=== PATIENT | female | born 1955 | race Caucasian/White ===

== ENCOUNTER 2022-09-22 11:54 | Inpatient (IN) | payer MEDICARE ==
--- NOTE | 2022-09-22 12:44 | ED ---
Recheck HPI - General Chief Complaint: Recheck/Abnormal Lab/Rx Stated Complaint: Low hemoglobin Time Seen by Provider: 09/22/22 12:05 Source: patient, family, EMS, RN notes reviewed Mode of arrival: EMS Limitations: no limitations - History of Present Illness Initial Comments: This is a 67-year-old female who presents to the emergency department for low hemoglobin. States that she was contacted by one of her family members and they told that her hemoglobin level was low. She was subsequently instructed to come to the emergency department. Believes that she has had low hemoglobin in the past, but denies any history of blood transfusions. She does report an increase in weakness over the last couple of days. Also reports minor shortness of [place] th. She was placed on oxygen by EMS, however she states that she does not wear oxygen at home. Denies any chest pain. When her family arrived, they state that this is not related to her hemoglobin level, but her coags in relation to the warfarin. States that she started warfarin 1-2 weeks ago due to the diagnosis of lung cancer. The lung cancer has metastasized to the bone and is being treated at [facility]. The provider at [facility] called her family and told them that her INR was incredibly elevated and she needed to go to the hospital. Denies any fevers, chills, sore throat, cough, chest pain, palpitations, abdominal pain, nausea, vomiting, diarrhea, back pain, or headaches. Complaint: abnormal lab Returns Today for: Called Because of Abnormal Lab/Test - Related Data Home Medications Medication Instructions Recorded Confirmed Acetylcysteine [Mucomyst 20%] 800 mg PO DAILY 09/22/22 09/22/22 Chlorhexidine Gluconate [Peridex] 15 ml PO BID 09/22/22 09/22/22 Docusate Sodium [Dok] 100 mg PO BID 09/22/22 09/22/22 Fluticasone/Umeclidin/Vilanter 1 puff INHALATION RT-DAILY@1300 09/22/22 09/22/22 [Trelemanuel Ellipta 100-62.5-25] HYDROcodone/APAP 10-325MG [[place] 1 tab PO QID PRN 09/22/22 09/22/22 10-325] Ipratropium-Albuterol Nebulize 3 ml INHALATION RT-Q6H PRN 09/22/22 09/22/22 [Duoneb 0.5 mg-3 mg/3 ml Soln] LORazepam [Ativan] 0.5 mg PO BID 09/22/22 09/22/22 Ondansetron [Zofran] 4 mg PO Q4H PRN 09/22/22 09/22/22 Osimertinib Mesylate [Tagrisso] 80 mg PO DAILY 09/22/22 09/22/22 Warfarin [Coumadin] 5 mg PO HS 09/22/22 09/22/22 Allergies Allergy/AdvReac Type Severity Reaction Status Date / Time No Known Allergies Allergy Verified 09/22/22 13:55 Review of Systems ROS Statement: Those systems with pertinent positive or pertinent negative responses have been documented in the HPI. ROS Other: All systems not noted in ROS Statement are negative. Past Medical History Past Medical History: COPD General Exam Limitations: no limitations General appearance: alert, in no apparent distress Head exam: Present: atraumatic, normocephalic, normal inspection Respiratory exam: Present: normal lung sounds bilaterally. Absent: respiratory distress, wheezes, rales, rhonchi, stridor Cardiovascular Exam: Present: regular rate, normal rhythm, normal heart sounds. Absent: systolic murmur, diastolic murmur, rubs, gallop, clicks Neurological exam: Present: alert, oriented X3, CN II-XII intact Psychiatric exam: Present: normal affect, normal mood Skin exam: Present: warm, dry, intact, normal color. Absent: rash Course Vital Signs 09/22/22 09/22/22 09/22/22 11:59 18:32 18:50 Temperature 98 F 98.5 F 97.5 F L Pulse Rate 103 H 89 Pulse Rate [ 91 Pulse Oximetery ] Respiratory 19 18 20 Rate Blood Pressure 126/79 92/65 Blood Pressure 109/70 [Left Arm] O2 Sat by Pulse 90 L 97 90 L Oximetry Medical Decision Making - Medical Decision Making This is a 67-year-old female who presents to the emergency department for elevated INR levels. Lab work does reveal an elevated INR at a value greater than 10. Patient was given 5 mg of oral vitamin K. Patient is hemodynamically stable and is not exhibiting any bleeding. My interpretation of the chest x-ray reveals bilateral perihilar infiltrates. Oral Augmentin and azithromycin were administered and initially, as we had thought the patient was going to be discharged. However, when her family arrived and provided more of her history in relation to the lung cancer and immunocompromised state, she was subsequently started on the pneumonia protocol with azithromycin and ceftriaxone. Blood and sputum cultures obtained prior. Additionally, she has been in 10 out of 10 pain that is uncontrolled with her [place] at home. Her family is concerned about her ability to function and move around due to this pain, which has been attributed to the bone metastasis. Patient will be admitted to medicine for pneumonia and elevated INR levels with hematology/oncology and pulmonary consults. This case was discussed in detail with the attending ED physician. Presentation, findings, and treatment plan discussed in detail as well. Was pt. sent in by a medical professional or institution? @ -Arnulfo Akers Did you speak to anyone other than the patient for history? @ -Her brothers Did you review nursing and triage notes? @ -Disagree, patient is not here for low hemoglobin. Were old charts reviewed? @ -No, no records available Differential Diagnosis? @ -Differential Dyspnea: Coronary syndrome, arrhythmia, tamponade, asthma, COPD, pulmonary embolism, pneumonia, pneumothorax, pulmonary effusion, anaphylaxis, diabetic ketoacidosis, flailed chest, pulmonary contusion, diaphragmatic rupture, anemia, neuromuscular, this is not meant to be an all-inclusive list. What testing was considered but not performed? (CT, X-rays, U/S, labs)? Why? @ None What meds were considered but not given? Why? @ -None Did you discuss the management of the patient with other professionals? @ -Dr. Damon and Lydia Gallagher NP Did you reconcile home meds? @ -Yes Were there social determinants of health that impacted care today? How? (Homelessness, low income, unemployed, alcoholism, drug addiction, transportation, low edu. Level, literacy, decrease access to med. care, long-term, rehab)? @ -No Was there de-escalation of care discussed even if they declined? (Discuss DNR or withdrawal of care, Hospice)? @ -No What co-morbidities impacted this encounter? (DM, HTN, Smoking, COPD, CAD, Cancer, CVA, Hep., AIDS, mental health diagnosis, sleep apnea, morbid obesity)? @ -COPD and metastatic lung cancer. Drug Therapy requiring intensive monitoring for toxicity (Heparin, Nitro, Insulin, Cardizem)? @ -None Were any procedures done? @ -None Diagnosis/symptom? @ -Pneumonia Acute, or Chronic, or Acute on Chronic? @ -Acute Uncomplicated (without systemic symptoms) or Complicated (systemic symptoms)? @ -Complicated Side effects of treatment? @ -ALLERGIC reaction to antibiotics Poses a threat to life or bodily function? @ -Yes Diagnosis/symptom? @ -Elevated INR Acute, or Chronic, or Acute on Chronic? @ -Acute Uncomplicated (without systemic symptoms) or Complicated (systemic symptoms)? @ -Uncomplicated Side effects of treatment? @ -With holding warfarin, may increase the risk of blood clots. Poses a threat to life or bodily function? @ -Yes - Lab Data Result diagrams: 09/22/22 12:46 09/22/22 12:46 Lab Results 09/22/22 09/22/22 09/22/22 Range/Units 12:46 12:46 12:46 WBC 7.7 (3.8-10.6) k/uL RBC 3.39 L (3.80-5.40) m/uL Hgb 10.3 L (11.4-16.0) gm/dL Hct 30.4 L (34.0-46.0) % MCV 89.8 (80.0-100.0) fL MCH 30.3 (25.0-35.0) pg MCHC 33.7 (31.0-37.0) g/dL RDW 14.5 (11.5-15.5) % Plt Count 262 (150-450) k/uL MPV 8.6 Neutrophils % 85 % Lymphocytes % 5 % Monocytes % 6 % Eosinophils % 1 % Basophils % 0 % Neutrophils # 6.6 (1.3-7.7) k/uL Lymphocytes # 0.4 L (1.0-4.8) k/uL Monocytes # 0.5 (0-1.0) k/uL Eosinophils # 0.0 (0-0.7) k/uL Basophils # 0.0 (0-0.2) k/uL PT 115.9 H (9.0-12.0) sec INR >10.0 H* (<1.2) APTT 70.5 H (22.0-30.0) sec Sodium 133 L (137-145) mmol/L Potassium 4.0 (3.5-5.1) mmol/L Chloride 101 (98-107) mmol/L Carbon Dioxide 27 (22-30) mmol/L Anion Gap 5 mmol/L BUN 9 (7-17) mg/dL Creatinine 0.60 (0.52-1.04) mg/dL Est GFR (CKD-EPI)AfAm >90 (>60 ml/min/1.73 sqM) Est GFR (CKD-EPI)NonAf >90 (>60 ml/min/1.73 sqM) Glucose 96 (74-99) mg/dL Plasma Lactic Acid Danish (0.7-2.0) mmol/L Calcium 8.5 (8.4-10.2) mg/dL Phosphorus 3.7 (2.5-4.5) mg/dL Magnesium 2.0 (1.6-2.3) mg/dL Total Bilirubin 0.3 (0.2-1.3) mg/dL AST 23 (14-36) U/L ALT 10 (4-34) U/L Alkaline Phosphatase 182 H (38-126) U/L Troponin I (0.000-0.034) ng/mL Total Protein 6.1 L (6.3-8.2) g/dL Albumin 3.5 (3.5-5.0) g/dL Influenza Type A (PCR) (Not Detectd) Influenza Type B (PCR) (Not Detectd) RSV (PCR) (Not Detectd) SARS-CoV-2 (PCR) (Not Detectd) 09/22/22 09/22/22 09/22/22 Range/Units 12:46 12:46 12:46 WBC (3.8-10.6) k/uL RBC (3.80-5.40) m/uL Hgb (11.4-16.0) gm/dL Hct (34.0-46.0) % MCV (80.0-100.0) fL MCH (25.0-35.0) pg MCHC (31.0-37.0) g/dL RDW (11.5-15.5) % Plt Count (150-450) k/uL MPV Neutrophils % % Lymphocytes % % Monocytes % % Eosinophils % % Basophils % % Neutrophils # (1.3-7.7) k/uL Lymphocytes # (1.0-4.8) k/uL Monocytes # (0-1.0) k/uL Eosinophils # (0-0.7) k/uL Basophils # (0-0.2) k/uL PT (9.0-12.0) sec INR (<1.2) APTT (22.0-30.0) sec Sodium (137-145) mmol/L Potassium (3.5-5.1) mmol/L Chloride (98-107) mmol/L Carbon Dioxide (22-30) mmol/L Anion Gap mmol/L BUN (7-17) mg/dL Creatinine (0.52-1.04) mg/dL Est GFR (CKD-EPI)AfAm (>60 ml/min/1.73 sqM) Est GFR (CKD-EPI)NonAf (>60 ml/min/1.73 sqM) Glucose (74-99) mg/dL Plasma Lactic Acid Danish 0.6 L (0.7-2.0) mmol/L Calcium (8.4-10.2) mg/dL Phosphorus (2.5-4.5) mg/dL Magnesium (1.6-2.3) mg/dL Total Bilirubin (0.2-1.3) mg/dL AST (14-36) U/L ALT (4-34) U/L Alkaline Phosphatase (38-126) U/L Troponin I <0.012 (0.000-0.034) ng/mL Total Protein (6.3-8.2) g/dL Albumin (3.5-5.0) g/dL Influenza Type A (PCR) Not Detected (Not Detectd) Influenza Type B (PCR) Not Detected (Not Detectd) RSV (PCR) Not Detected (Not Detectd) SARS-CoV-2 (PCR) Not Detected (Not Detectd) - EKG Data EKG Comments: Sinus rhythm. Ventricular rate 84 bpm, IN interval 150 ms, QRS duration 113 ms, QTC 425 ms. EKG interpreted by myself and ED attending. - Radiology Data Radiology results: report reviewed, image reviewed Disposition Clinical Impression: Elevated INR (international normalized ratio) due to prior anticoagulant medication ingestion, Pneumonia, Immunocompromised state Disposition: ADMITTED IP TO THIS HOSP
[2022-09-22 13:01] LABS: Basophils % (A) 0 %; Eosinophils % (A) 1 %; HCT 30.4 % (34.0-46.0); HGB 10.3 gm/dL (11.4-16.0); Lymphocytes # (A) 0.4 k/uL (1.0-4.8); Lymphocytes % (A) 5 %; MCH 30.3 pg (25.0-35.0); MCHC 33.7 g/dL (31.0-37.0); MCV 89.8 fL (80.0-100.0); Mean Platelet Volume 8.6; Monocytes # (A) 0.5 k/uL (0-1.0); Monocytes % (A) 6 %; Neutrophils # (A) 6.6 k/uL (1.3-7.7); Neutrophils % (A) 85 %; Platelet Count 262 k/uL (150-450); RBC 3.39 m/uL (3.80-5.40); RDW 14.5 % (11.5-15.5); WBC 7.7 k/uL (3.8-10.6)
[2022-09-22 13:17] LABS: ALT 10 U/L (4-34); AST 23 U/L (14-36); African American GFR (CKD) >90 (>60 ml/min/1.73 sqM); Albumin 3.5 g/dL (3.5-5.0); Alkaline Phosphatase 182 U/L (38-126); Anion Gap 5 mmol/L; Blood Urea Nitrogen 9 mg/dL (7-17); Calcium 8.5 mg/dL (8.4-10.2); Carbon Dioxide 27 mmol/L (22-30); Chloride 101 mmol/L (98-107); Glucose 96 mg/dL (74-99); Non-African American GFR(CKD) >90 (>60 ml/min/1.73 sqM); Phosphorus 3.7 mg/dL (2.5-4.5); Sodium 133 mmol/L (137-145); Total Bilirubin 0.3 mg/dL (0.2-1.3); Total Protein 6.1 g/dL (6.3-8.2)
[2022-09-22 13:29] LABS: Prothrombin Time 115.9 sec (9.0-12.0)
[2022-09-22 13:47] LABS: INR >10.0 (<1.2); Partial Thromboplastin Time 70.5 sec (22.0-30.0)
--- NOTE | 2022-09-22 14:08 | XR ---
EXAMINATION TYPE: XR chest 2V DATE OF EXAM: 09/22/2022 COMPARISON: NONE HISTORY: Shortness of breath TECHNIQUE: Frontal and lateral views of the chest are obtained. FINDINGS: Scattered senescent parenchymal changes noted. Hyperinflation compatible with COPD. Perihilar infiltrates left greater than right. Correlate for pneumonia. Left suprahilar mass is not e xcluded. Heart size is stable. Mediastinal structures are stable and grossly unremarkable. No evidence for hilar prominence. Degenerative changes dorsal spine. IMPRESSION: 1. Perihilar infiltrates left greater than right. Correlate for pneumonia. Left suprahilar mass is no t excluded.
[2022-09-22] MEDS ORDERED: HYDROmorphone 0.5 MG/0.5 ML SYRINGE IVP STA (14:15)
[2022-09-22] MEDS ORDERED: PHYTONADIONE ORAL 5 MG/5 ML ORAL.SYRG PO STA (14:15)
[2022-09-22] MEDS ORDERED: AZITHROMYCIN 500 MG TAB PO STA (14:17)
[2022-09-22] MEDS ORDERED: AMOXIC-POT CLAV 875-125MG 1 EACH TAB PO STA (14:17)
[2022-09-22] MEDS ORDERED: PNEUMONIA PROTOCOL UTILIZED 1 EACH MISC PO PRN (15:17)
[2022-09-22] MEDS ORDERED: ONDANSETRON 4 MG/2 ML VIAL IVP STA (15:57)
[2022-09-22] MEDS ORDERED: ONDANSETRON 4 MG/2 ML VIAL IVP PRN (17:06)
[2022-09-22] MEDS ORDERED: ACETAMINOPHEN TAB 325 MG TAB PO PRN (17:06)
[2022-09-22] MEDS ORDERED: NALOXONE 0.4 MG/ML 1 ML VIAL IV PRN (17:06)
[2022-09-22] MEDS ORDERED: IPRATROPIUM-ALBUTEROL 3 ML NEB INHALATION PRN (17:09)
[2022-09-22] MEDS ORDERED: HYDROcodone/APAP 5-325MG 1 EACH TAB PO PRN (17:45)
[2022-09-22] MEDS: HYDROmorphone 0.5 MG/0.5 ML SYRINGE IVP SCH ×2 (18:35→21:30)
[2022-09-22] MEDS: PANTOPRAZOLE 40 MG/10 ML VIAL IV SCH (18:35)
[2022-09-22] MEDS: methylPREDNISolone SOD SUCCI 125 MG/2 ML VIAL IV SCH ×2 (18:36→23:27)
[2022-09-22] MEDS: DOCUSATE 100 MG CAP PO SCH (20:03)
[2022-09-22] MEDS: LORazepam 0.5 MG TAB PO SCH (20:03)
[2022-09-22] MEDS: CHLORHEXIDINE GLUCONATE 15 ML CUP MUCOUS MEM SCH (20:06)
[2022-09-22] MEDS: IPRATROPIUM-ALBUTEROL 3 ML NEB INHALATION SCH (20:45)
[2022-09-22] MEDS: SYMBICORT 80-4.5 MCG INHALER INHALATION SCH (21:04)
--- NOTE | 2022-09-23 00:57 | HP ---
HISTORY AND PHYSICAL CHIEF COMPLAINT: Abnormal labs. HISTORY OF PRESENT ILLNESS: This 67-year-old woman with a past medical history of multiple medical problems including COPD, malignancy, who was referred to [facility] with concerns of abnormal labs, low hemoglobin. The patient complains of diffuse aches and pains. No chest pain. No palpitations. No fever. Chest x-ray showed perihilar infiltrates. PAST MEDICAL HISTORY: COPD. The rest of the history and medications reviewed. HOME MEDICATIONS: Reviewed and include Coumadin, dose and rest of medications reviewed. ALLERGIES: None. FAMILY HISTORY: No history of heart disease or strokes in the family. SOCIAL HISTORY: No history of smoking or alcohol. REVIEW OF SYSTEMS: A 14-point review of systems is negative except as mentioned earlier. PHYSICAL EXAMINATION: VITAL SIGNS: Pulse is 103, blood pressure 110/70, respirations 19. HEENT: Conjunctivae normal. NECK: No JVD. CARDIOVASCULAR: S1, S2. RESPIRATION: Breath sounds diminished at the bases. Bilateral scattered rhonchi and crackles. ABDOMEN: Soft, nontender. LEGS: No edema. No swelling. NERVOUS SYSTEM: Nonfocal. SKIN: No ulcer, rash, bleeding. JOINTS: No active deforming arthropathy. LABORATORY DATA: Reviewed. ASSESSMENT: 1. Coumadin coagulopathy. 2. Possible pneumonia. metastaic lung cancer 3. Chronic obstructive pulmonary disease. 4. Anemia. 5. History of malignancy. 6. Multiple medical issues. RECOMMENDATIONS: In this 67-year-old woman, who presented with multiple medical issues, we will monitor the patient closely. Continue with current medications and symptomatic treatment. Otherwise at this time, I recommend to repeat labs in the morning, bronchodilators, symptomatic treatment. Prognosis is guarded because of multiple complex medical issues. Hematology/Oncology and Pulmonary has been consulted. Further recommendations to follow. The chest x-ray, which was reviewed personally showed perihilar infiltrates. MMODL / IJN: [id number] / [facility]ITALPedro
[2022-09-23] MEDS: HYDROmorphone 0.5 MG/0.5 ML SYRINGE IVP SCH ×5 (01:52→12:26)
[2022-09-23] MEDS: methylPREDNISolone SOD SUCCI 125 MG/2 ML VIAL IV SCH ×2 (05:40→12:26)
[2022-09-23 06:06] VITALS: RESP 18
[2022-09-23 06:36] LABS: Glucose,Whole Blood 150 mg/dL (70-110)
[2022-09-23 07:50] LABS: Basophils % (A) 0 %; Eosinophils % (A) 0 %; HCT 32.4 % (34.0-46.0); HGB 10.8 gm/dL (11.4-16.0); Lymphocytes # (A) 0.2 k/uL (1.0-4.8); Lymphocytes % (A) 8 %; MCH 30.3 pg (25.0-35.0); MCHC 33.3 g/dL (31.0-37.0); MCV 90.9 fL (80.0-100.0); Mean Platelet Volume 8.5; Monocytes # (A) 0.1 k/uL (0-1.0); Monocytes % (A) 2 %; Neutrophils # (A) 2.9 k/uL (1.3-7.7); Neutrophils % (A) 89 %; Platelet Count 283 k/uL (150-450); RBC 3.57 m/uL (3.80-5.40); RDW 13.9 % (11.5-15.5); WBC 3.2 k/uL (3.8-10.6)
[2022-09-23 07:55] LABS: Prothrombin Time 39.3 sec (9.0-12.0)
[2022-09-23 08:05] VITALS: BP 120/62; TEMP 97.8
[2022-09-23] MEDS: CHLORHEXIDINE GLUCONATE 15 ML CUP MUCOUS MEM SCH (08:07)
[2022-09-23] MEDS: PANTOPRAZOLE 40 MG/10 ML VIAL IV SCH (08:08)
[2022-09-23] MEDS: LORazepam 0.5 MG TAB PO SCH (08:08)
[2022-09-23] MEDS: DOCUSATE 100 MG CAP PO SCH (08:08)
[2022-09-23 08:20] LABS: African American GFR (CKD) >90 (>60 ml/min/1.73 sqM); Anion Gap 8 mmol/L; Blood Urea Nitrogen 10 mg/dL (7-17); Calcium 9.4 mg/dL (8.4-10.2); Carbon Dioxide 25 mmol/L (22-30); Chloride 100 mmol/L (98-107); Glucose 134 mg/dL (74-99); Non-African American GFR(CKD) >90 (>60 ml/min/1.73 sqM); Potassium 4.7 mmol/L (3.5-5.1); Sodium 133 mmol/L (137-145)
--- NOTE | 2022-09-23 08:28 | XR ---
EXAMINATION TYPE: XR chest 2V DATE OF EXAM: 09/23/2022 COMPARISON: None HISTORY: Shortness of breath TECHNIQUE: Frontal and lateral views of the chest are obtained. FINDINGS: Scattered senescent parenchymal changes noted. Hyperinflation compatible with COPD. Left perihilar and basilar infiltrates seen bilaterally suspicious for underlying pneumonia. Correlat e clinically and progress studies are advised. Heart size is stable. Mediastinal structures are stable and grossly unremarkable. No evidence for hilar prominence. Degenerative changes dorsal spine. IMPRESSION: 1. Left perihilar and basilar infiltrates seen bilaterally suspicious for underlying pneumonia. Corre late clinically and progress studies are advised.
[2022-09-23] MEDS ORDERED: NON FORMULARY DRUG (Osimertinib Mesylate [Tagrisso] 80 MG Tablet) PO SCH (09:00)
[2022-09-23] MEDS ORDERED: ACETYLCYSTEINE 800 MG/4 ML VIAL PO SCH (09:00)
[2022-09-23] MEDS ORDERED: AZITHROMYCIN 500 MG TAB PO SCH (09:00)
[2022-09-23] MEDS ORDERED: PHYTONADIONE ORAL 5 MG/5 ML ORAL.SYRG PO STA (09:28)
[2022-09-23] MEDS: SYMBICORT 80-4.5 MCG INHALER INHALATION SCH (10:04)
[2022-09-23] MEDS: IPRATROPIUM-ALBUTEROL 3 ML NEB INHALATION SCH ×2 (10:05→11:34)
--- NOTE | 2022-09-23 11:30 | P.CNPUL ---
History of Present Illness Consult date: 09/23/22 Requesting physician: Romario Larson Reason for consult: abnormal CXR/CT Chief complaint: Abnormal labs History of present illness: This is a very pleasant 67-year-old female patient with a known history of lung cancer since 2019. She follows at [facility] for treatment. She's been on immunotherapy since diagnosis. She is currently on Tagrisso. She had developed a DVT from a left subclavian port which has subsequently been removed. She had been trialed on Eliquis, Lovenox, Xarelto and had currently been on warfarin. She was informed yesterday that she needed to come to the emergency room because her lab work was off. She was found to have an INR of greater than 10. Due to the chronic abnormalities of her chest x-ray she was admitted for pneumonia and started on ceftriaxone and azithromycin. She has no pulmonary complaints. No cough or congestion. No shortness of breath. No fever chills. She states she was doing her day-to-day activities prior to her getting a call to come to the ER. Chest x-ray reveals the left perihilar and basilar infiltrates and a right lung. White count 3.2. Hemoglobin 10.8. Current INR 4.0. Sodium 133. Potassium 4.7. Bicarb 25. BUN 10. Creatinine 0.58. Influenza screen negative. RSV screen negative. COVID-19 screen negative. She is seen today in consultation on the regular medical floor. She is currently at the bedside. Awake and alert in no acute distress. No hemoptysis. No complaints otherwise. She is maintaining O2 saturations up to 99% on 2 L/m per nasal cannula. Afebrile. Hemodynamically stable. Review of Systems REVIEW OF SYSTEMS: CONSTITUTIONAL: Denies any recent significant weight loss or weight gain. EYES: Denies change in vision. EARS, NOSE, MOUTH, THROAT: Denies headaches, denies sore throat. CARDIOVASCULAR: Denies chest pain, palpitations or syncopal episodes. RESPIRATORY: Denies shortness of breath, cough, congestion or hemoptysis. GASTROINTESTINAL: Denies change in appetite, denies abdominal pain GENITOURINARY: Denies hematuria, denies infections. MUSKULOSKELETAL: Denies pain, denies swelling. INTEGUMENTARY: Denies rash, denies eczema. NEUROLOGICAL: Denies recent memory loss, no recent seizure activity. PSYCHIATRIC: Denies anxiety, denies depression. HEMATOLOGIC/LYMPHATIC: Denies anemia, denies enlarged lymph nodes. Past Medical History Past Medical History: COPD Additional Past Medical History / Comment(s): lung cancer with mets to the bone History of Any Multi-Drug Resistant Organisms: None Reported Additional Past Surgical History / Comment(s): tubal ligation, stent placed in lungs to assist breathing placed May of 2021 Past Anesthesia/Blood Transfusion Reactions: No Reported Reaction Past Psychological History: Anxiety, Depression Smoking Status: Former smoker Past Alcohol Use History: None Reported Past Drug Use History: Marijuana - Past Family History Father Family Medical History: Cancer Additional Family Medical History / Comment(s): lung Mother Family Medical History: COPD Additional Family Medical History / Comment(s): still alive Medications and Allergies Home Medications Medication Instructions Recorded Confirmed Type Acetylcysteine [Mucomyst 20%] 800 mg PO DAILY 09/22/22 09/22/22 History Chlorhexidine Gluconate [Peridex] 15 ml PO BID 09/22/22 09/22/22 History Docusate Sodium [Dok] 100 mg PO BID 09/22/22 09/22/22 History Fluticasone/Umeclidin/Vilanter 1 puff INHALATION RT-DAILY@1300 09/22/22 09/22/22 History [Trelegy Ellipta 100-62.5-25] HYDROcodone/APAP 10-325MG [[place] 1 tab PO QID PRN 09/22/22 09/22/22 History 10-325] LORazepam [Ativan] 0.5 mg PO BID 09/22/22 09/22/22 History Ondansetron [Zofran] 4 mg PO Q4H PRN 09/22/22 09/22/22 History Osimertinib Mesylate [Tagrisso] 80 mg PO DAILY 09/22/22 09/22/22 History Azithromycin [Zithromax] 500 mg PO DAILY 4 Days #4 tab 09/23/22 Rx Ipratropium-Albuterol Nebulize 3 ml INHALATION Q6H 30 Days #120 09/23/22 Rx [Duoneb 0.5 mg-3 mg/3 ml Soln] each Ipratropium-Albuterol Nebulize 3 ml INHALATION RT-Q6H PRN each 09/23/22 Rx [Duoneb 0.5 mg-3 mg/3 ml Soln] cefUROXime axetiL [Ceftin] 500 mg PO BID 1 Days #2 tab 09/23/22 Rx predniSONE 10 mg PO DIRECTED #30 tab 09/23/22 Rx Allergies Allergy/AdvReac Type Severity Reaction Status Date / Time No Known Allergies Allergy Verified 09/22/22 13:55 Physical Exam Vitals: Vital Signs Temp Pulse Pulse Resp BP BP Pulse Ox 09/23/22 10:44 95 18 09/23/22 08:00 97.8 F 95 18 120/62 96 09/23/22 04:00 88 18 109/73 99 09/23/22 00:00 89 17 119/81 98 09/22/22 21:00 83 09/22/22 20:48 77 94 L 09/22/22 20:00 97.4 F L 78 17 110/75 96 09/22/22 18:50 97.5 F L 91 20 109/70 90 L 09/22/22 18:32 98.5 F 89 18 92/65 97 09/22/22 11:59 98 F 103 H 19 126/79 90 L Intake and Output 09/22/22 09/23/22 09/23/22 22:59 06:59 14:59 Other: Voiding Method Toilet Toilet # Voids 1 1 Weight 47.174 kg GENERAL EXAM: Alert, active, pleasant 67-year-old female, on 2 L nasal cannula, comfortable in no apparent distress. HEAD: Normocephalic. EYES: Normal reaction of pupils, equal size. NOSE: Clear with pink turbinates. THROAT: No erythema or exudates. NECK: No masses, no JVD. CHEST: No chest wall deformity. LUNGS: Equal air entry with no crackles, wheeze, rhonchi or dullness. CVS: S1 and S2 normal with no audible murmur, regular rhythm. ABDOMEN: No hepatosplenomegaly, normal bowel sounds, no guarding or rigidity. SPINE: No scoliosis or deformity SKIN: No rashes CENTRAL NERVOUS SYSTEM: No focal deficits, tone is normal in all 4 extremities. EXTREMITIES: There is no peripheral edema. No clubbing, no cyanosis. Peripheral pulses are intact. Results - Laboratory Findings CBC and BMP: 09/23/22 07:13 09/23/22 07:13 PT/INR, D-dimer PT 39.3 sec (9.0-12.0) H 09/23/22 07:13 INR 4.0 (<1.2) H 09/23/22 07:13 Abnormal lab findings: Abnormal Labs 09/22/22 09/22/22 09/22/22 12:46 12:46 12:46 WBC RBC 3.39 L Hgb 10.3 L Hct 30.4 L Lymphocytes # 0.4 L PT 115.9 H INR >10.0 H* APTT 70.5 H Sodium 133 L Glucose POC Glucose (mg/dL) Plasma Lactic Acid Danish Alkaline Phosphatase 182 H Total Protein 6.1 L 09/22/22 09/23/22 09/23/22 12:46 06:35 07:13 WBC 3.2 L RBC 3.57 L Hgb 10.8 L Hct 32.4 L Lymphocytes # 0.2 L PT INR APTT Sodium Glucose POC Glucose (mg/dL) 150 H Plasma Lactic Acid Danish 0.6 L Alkaline Phosphatase Total Protein 09/23/22 09/23/22 07:13 07:13 WBC RBC Hgb Hct Lymphocytes # PT 39.3 H INR 4.0 H APTT Sodium 133 L Glucose 134 H POC Glucose (mg/dL) Plasma Lactic Acid Danish Alkaline Phosphatase Total Protein - Diagnostic Findings Chest x-ray: image reviewed Assessment and Plan Assessment: Supra therapeutic INR greater than 10 on admission, currently 4.0 in a patient on warfarin for history of DVT following left subclavian port catheter insertion and subsequent removal Known history of lung cancer since 2019, follows at [facility], currently on immunotherapy in the form of Tagrisso Chronic obstructive pulmonary disease maintained on Trelegy and albuterol in the outpatient setting Former smoker Plan: The patient was seen and evaluated Chest x-ray, labs and medications reviewed INR corrected and currently at 4.0 Adjust warfarin in the outpatient setting Continue her home pulmonary medications No need for antibiotics Continue her follow-up at [facility] I have personally seen and examined the patient, performed the documentation and the assessment and plan as written. Number of minutes spent on the visit: 20.
[2022-09-23 11:46] VITALS: PULSE 86
[2022-09-23 11:50] LABS: Glucose,Whole Blood 107 mg/dL (70-110)
[2022-09-23 12:46] VITALS: BMI 16.2
[2022-09-23] MEDS ORDERED: IPRATROPIUM 0.5 MG/2.5 ML NEBU INHALATION SCH (13:00)
--- NOTE | 2022-09-23 16:13 | P.CONS ---
History of Present Illness - Reason for Consult Consult date: 09/23/22 Metastatic lung cancer, supratherapeutic INR Requesting physician: Jadyn Trujillo - Chief Complaint Elevated INR, increasing weakness - History of Present Illness Patient is a pleasant 67-year-old female patient with a history of NSCLC since 2019 with mets to the bone, who presented to the ED for elevated INR, greater than 10. Pt states her family was contacted by provider stating that her INR was extremely elevated and needed to go to the hospital for treatment. Pt reports increasing weakness over the last couple days and mild SOB, but denies SOB at this time. She has received vitamin K, her current INR is 4.0. Patient denies any bleeding. Also on admit, CXR showed left perihilar and bilateral basilar infiltrates right lung, admitted for pneumonia and started on ceftriaxone and azithromycin. Pt denies resp complaints at this time. No fever or chills. Whi te count 3.2. Hemoglobin 10.8. PLT 283. She is being followed by Dr. Jinny Lowry at [facility]. She's currently being treated with targeted agent Tagrisso-EGFR mutation-been on since 2019. She had developed a DVT and PE approx 6 months ago, after placement of left subclavian port, which has subsequently been removed. She has been on Eliquis, Lovenox, and Xarelto-pt not sure why, denied that she had recurrent clots but "no improvement" in existing clots. Warfarin started approx 2 weeks ago, started on 5mg daily. Review of Systems 10 point ROS is negative except as stated in HPI Past Medical History Past Medical History: Cancer, COPD Additional Past Medical History / Comment(s): lung cancer with mets to the bone History of Any Multi-Drug Resistant Organisms: None Reported Additional Past Surgical History / Comment(s): tubal ligation, stent placed in lungs to assist breathing placed May of 2021 Past Anesthesia/Blood Transfusion Reactions: No Reported Reaction Past Psychological History: Anxiety, Depression Smoking Status: Former smoker Past Alcohol Use History: None Reported Past Drug Use History: Marijuana - Past Family History Father Family Medical History: Cancer Additional Family Medical History / Comment(s): lung Mother Family Medical History: COPD Additional Family Medical History / Comment(s): still alive Medications and Allergies Home Medications Medication Instructions Recorded Confirmed Type Acetylcysteine [Mucomyst 20%] 800 mg INHALATION DAILY 12/22/22 12/23/22 History Chlorhexidine Gluconate [Peridex] 15 ml PO BID 09/22/22 09/22/22 History Docusate Sodium [Dok] 100 mg PO BID 09/22/22 09/22/22 History Fluticasone/Umeclidin/Vilanter 1 puff INHALATION RT-DAILY@1300 09/22/22 09/22/22 History [Trelegy Ellipta 100-62.5-25] HYDROcodone/APAP 10-325MG [Wilson 1 tab PO QID PRN 09/22/22 09/22/22 History 10-325] LORazepam [Ativan] 0.5 mg PO BID 09/22/22 09/22/22 History Ondansetron [Zofran] 4 mg PO Q4H PRN 09/22/22 09/22/22 History Osimertinib Mesylate [Tagrisso] 80 mg PO DAILY 09/22/22 09/22/22 History Azithromycin [Zithromax] 500 mg PO DAILY 4 Days #4 tab 09/23/22 Rx Ipratropium-Albuterol Nebulize 3 ml INHALATION Q6H 30 Days #120 09/23/22 Rx [Duoneb 0.5 mg-3 mg/3 ml Soln] each Ipratropium-Albuterol Nebulize 3 ml INHALATION RT-Q6H PRN each 09/23/22 Rx [Duoneb 0.5 mg-3 mg/3 ml Soln] cefUROXime axetiL [Ceftin] 500 mg PO BID 1 Days #2 tab 09/23/22 Rx predniSONE 10 mg PO DIRECTED #30 tab 09/23/22 Rx Allergies Allergy/AdvReac Type Severity Reaction Status Date / Time No Known Allergies Allergy Verified 09/22/22 13:55 Physical Exam Vitals: Vital Signs Temp Pulse Pulse Resp BP BP Pulse Ox 09/23/22 11:45 86 09/23/22 11:37 92 L 09/23/22 11:34 81 09/23/22 10:44 95 18 09/23/22 08:00 97.8 F 95 18 120/62 96 09/23/22 04:00 88 18 109/73 99 09/23/22 00:00 89 17 119/81 98 09/22/22 21:00 83 09/22/22 20:48 77 94 L 09/22/22 20:00 97.4 F L 78 17 110/75 96 09/22/22 18:50 97.5 F L 91 20 109/70 90 L 09/22/22 18:32 98.5 F 89 18 92/65 97 Intake and Output 09/22/22 09/23/22 09/23/22 22:59 06:59 14:59 Other: Voiding Method Toilet Toilet # Voids 1 1 Weight 47.174 kg - Constitutional General appearance: average body habitus, cooperative, no acute distress - EENT Eyes: anicteric sclerae, EOMI ENT: hearing grossly normal - Neck Neck: no lymphadenopathy, normal ROM - Respiratory Respiratory: bilateral: CTA - Cardiovascular Rhythm: regular Heart sounds: normal: S1, S2 Abnormal Heart Sounds: no systolic murmur, no diastolic murmur, no rub, no S3 Gallop, no S4 Gallop, no click, no other - Gastrointestinal General gastrointestinal: no distended, soft, no tenderness - Integumentary Integumentary: normal - Neurologic grossly Neurologic: CNII-XII intact - Musculoskeletal Musculoskeletal: strength equal bilaterally - Psychiatric Psychiatric: A&O x's 3, appropriate affect, intact judgment & insight Results CBC & Chem 7: 09/23/22 07:13 09/23/22 07:13 Labs: Abnormal Lab Results - Last 24 Hours (Table) 09/22/22 09/22/22 09/22/22 Range/Units 12:46 12:46 12:46 WBC (3.8-10.6) k/uL RBC 3.39 L (3.80-5.40) m/uL Hgb 10.3 L (11.4-16.0) gm/dL Hct 30.4 L (34.0-46.0) % Lymphocytes # 0.4 L (1.0-4.8) k/uL PT 115.9 H (9.0-12.0) sec INR >10.0 H* (<1.2) APTT 70.5 H (22.0-30.0) sec Sodium 133 L (137-145) mmol/L Glucose (74-99) mg/dL POC Glucose (mg/dL) (70-110) mg/dL Plasma Lactic Acid Danish (0.7-2.0) mmol/L Alkaline Phosphatase 182 H (38-126) U/L Total Protein 6.1 L (6.3-8.2) g/dL 09/22/22 09/23/22 09/23/22 Range/Units 12:46 06:35 07:13 WBC 3.2 L (3.8-10.6) k/uL RBC 3.57 L (3.80-5.40) m/uL Hgb 10.8 L (11.4-16.0) gm/dL Hct 32.4 L (34.0-46.0) % Lymphocytes # 0.2 L (1.0-4.8) k/uL PT (9.0-12.0) sec INR (<1.2) APTT (22.0-30.0) sec Sodium (137-145) mmol/L Glucose (74-99) mg/dL POC Glucose (mg/dL) 150 H (70-110) mg/dL Plasma Lactic Acid Danish 0.6 L (0.7-2.0) mmol/L Alkaline Phosphatase (38-126) U/L Total Protein (6.3-8.2) g/dL 09/23/22 09/23/22 Range/Units 07:13 07:13 WBC (3.8-10.6) k/uL RBC (3.80-5.40) m/uL Hgb (11.4-16.0) gm/dL Hct (34.0-46.0) % Lymphocytes # (1.0-4.8) k/uL PT 39.3 H (9.0-12.0) sec INR 4.0 H (<1.2) APTT (22.0-30.0) sec Sodium 133 L (137-145) mmol/L Glucose 134 H (74-99) mg/dL POC Glucose (mg/dL) (70-110) mg/dL Plasma Lactic Acid Danish (0.7-2.0) mmol/L Alkaline Phosphatase (38-126) U/L Total Protein (6.3-8.2) g/dL Chest x-ray: report reviewed Assessment and Plan (1) Adenocarcinoma of lung Status: Acute Priority: High Code(s): C34.90 - MALIGNANT NEOPLASM OF UNSP PART OF UNSP BRONCHUS OR LUNG SNOMED Code(s): 532108343 (2) Elevated INR (international normalized ratio) due to prior anticoagulant medication ingestion Status: Acute Priority: High Code(s): R79.1 - ABNORMAL COAGULATION PROFILE SNOMED Code(s): 664354838 Plan: Supratherapeutic INR. Patient is received vitamin K. Current INR is 4. Recommendation is to hold Coumadin again today. If INR is between 2 and 3 tomorrow recommendation is to alternate 5 mg and 2.5 mg. Patient needs to follow up with oncologist soon so that she can have her INR monitored more closely, dose adjustments as needed. Continue tagrisso as prescribed. attests: I have seen and examined patient, performed H&P, developed impression and plan of care. Discussed with dictator. Agree with documentation, dictated as a scribe
--- NOTE | 2022-09-24 02:09 | DS ---
DISCHARGE SUMMARY FINAL DIAGNOSES: 1. Coumadin coagulopathy. 2. Chronic obstructive pulmonary disease. 3. Possible pneumonia. 4. Cell lung cancer. 5. Anemia. 6. History of malignancy. 7. Multiple medical issues. DISCHARGE DISPOSITION: The patient will be discharged in stable condition with guarded prognosis. HISTORY OF PRESENT ILLNESS: This is a 67-year-old woman with a past medical history of multiple medical problems, admitted with Coumadin coagulopathy and as well as abnormal chest x-ray. The patient was treated for possible pneumonia and COPD, improved significantly. The patient will be discharged in stable condition with guarded prognosis. PHYSICAL EXAMINATION: VITAL SIGNS: Stable. CARDIOVASCULAR: S1,S2. ABDOMEN: Soft. NERVOUS SYSTEM: No focal deficits. DISCHARGE ADVICE AND MEDICATIONS: Please refer to the discharge reconciliation medication for list of medications. Recommended DuoNeb q.i.d. and p.r.n. Continue rest of medications. Ceftin for 2 more days. Tapering steroids and Zithromax for 4 more days. MMODL / IJN: [id number] /
== END 2022-09-23 13:56 | disposition home or self-care (01) | DRG 947 ==
LOC: EC 11:54 → 3SCARD 17:06
PROVIDERS: ADMIT Hospitalist; ATTEND Hospitalist
DX: R79.1 Abnormal coagulation profile (principal); E11.10 Type 2 diabetes mellitus with ketoacidosis without coma; J18.9 Pneumonia, unspecified organism; C34.90 Malignant neoplasm of unspecified part of unspecified bronchus or lung; C79.51 Secondary malignant neoplasm of bone; D84.9 Immunodeficiency, unspecified; J44.0 Chronic obstructive pulmonary disease with (acute) lower respiratory infection; Z20.822 Contact with and (suspected) exposure to COVID-19; J90 Pleural effusion, not elsewhere classified; J93.83 Other pneumothorax; T36.95XA Adverse effect of unspecified systemic antibiotic, initial encounter; T45.515A Adverse effect of anticoagulants, initial encounter; I25.10 Atherosclerotic heart disease of native coronary artery without angina pectoris; D64.9 Anemia, unspecified; F10.20 Alcohol dependence, uncomplicated; I10 Essential (primary) hypertension; F32.A Depression, unspecified; F41.9 Anxiety disorder, unspecified; Z59.00 Homelessness unspecified; Z79.01 Long term (current) use of anticoagulants; Z79.899 Other long term (current) drug therapy; Z85.118 Personal history of other malignant neoplasm of bronchus and lung; Z86.718 Personal history of other venous thrombosis and embolism; Z87.891 Personal history of nicotine dependence; X58.XXXA Exposure to other specified factors, initial encounter; Z98.51 Tubal ligation status; Z82.5 Family history of asthma and other chronic lower respiratory diseases
CPT/HCPCS: 36415; 71046; 80048; 80053; 83605; 83735; 84100; 84145; 84484; 85025; 85610; 85730; 87040; 87636; 93005; 94640; 94760; 96374; 96375; 96376; 99285

== ENCOUNTER 2022-09-26 11:33 | Inpatient (IN) | payer MEDICARE ==
[2022-09-26] MEDS ORDERED: ALBUTEROL HFA INHALER INHALATION STA (12:08)
[2022-09-26] MEDS ORDERED: ONDANSETRON 4 MG/2 ML VIAL IVP STA (12:25)
[2022-09-26] MEDS ORDERED: HYDROmorphone 1 MG/ML 1 ML SYRINGE IVP STA ×2 (12:25→15:51)
[2022-09-26] MEDS ORDERED: SODIUM CHLORIDE 0.9% 500 ML 500 ML IV STA (12:26)
--- NOTE | 2022-09-26 12:57 | ED ---
SOB HPI - General Chief Complaint: Shortness of Breath Stated Complaint: MK Time Seen by Provider: 09/26/22 11:46 Source: patient, EMS, RN notes reviewed, old records reviewed Mode of arrival: EMS Limitations: no limitations - History of Present Illness Initial Comments: 67-year-old female with a history of recent admission for pneumonia who wished patient is also found have metastatic lung cancer who presents back today with complaints of anterior posterior chest pain sharp in nature moderate in severity also associated with shortness of breath she denies any overt fevers chills or sweats. She does admit to decreased oral intake. MD Complaint: shortness of breath, chest pain - Related Data Home Medications Medication Instructions Recorded Confirmed Acetylcysteine [Mucomyst 20%] 800 mg INHALATION RT-DAILY 09/22/22 09/26/22 Chlorhexidine Gluconate [Peridex] 15 ml PO BID 09/22/22 09/26/22 Docusate Sodium [Dok] 100 mg PO BID 09/22/22 09/26/22 Fluticasone/Umeclidin/Vilanter 1 puff INHALATION RT-DAILY@1300 09/22/22 09/26/22 [Trelegy Ellipta 100-62.5-25] HYDROcodone/APAP 10-325MG [Cutler 1 tab PO QID PRN 09/22/22 09/26/22 10-325] LORazepam [Ativan] 0.5 mg PO BID 09/22/22 09/26/22 Ondansetron [Zofran] 4 mg PO TID PRN 09/22/22 09/26/22 Osimertinib Mesylate [Tagrisso] 80 mg PO DAILY 09/22/22 09/26/22 Albuterol Sulfate [Ventolin HFA] 2 puff INHALATION RT-QID PRN 09/26/22 09/26/22 Amoxic-Pot Clav 875-125Mg 1 tab PO Q12H 09/26/22 09/26/22 [Augmentin 875-125] Ipratropium-Albuterol Nebulize 3 ml INHALATION RT-QID 09/26/22 09/26/22 [Duoneb 0.5 mg-3 mg/3 ml Soln] Ipratropium-Albuterol Nebulize 3 ml INHALATION RT-QID PRN 09/26/22 09/26/22 [Duoneb 0.5 mg-3 mg/3 ml Soln] Warfarin Sodium 2.5 mg PO DIRECTED@2100 09/26/22 09/26/22 predniSONE See Taper PO DIRECTED 09/26/22 09/26/22 Previous Rx's Medication Instructions Recorded Azithromycin [Zithromax] 500 mg PO DAILY 4 Days #4 tab 09/23/22 Allergies Allergy/AdvReac Type Severity Reaction Status Date / Time No Known Allergies Allergy Verified 09/26/22 13:04 Review of Systems ROS Statement: Those systems with pertinent positive or pertinent negative responses have been documented in the HPI. ROS Other: All systems not noted in ROS Statement are negative. Past Medical History Past Medical History: Cancer, COPD Additional Past Medical History / Comment(s): lung cancer with mets to the bone History of Any Multi-Drug Resistant Organisms: None Reported Additional Past Surgical History / Comment(s): tubal ligation, stent placed in lungs to assist breathing placed May of 2021 Past Anesthesia/Blood Transfusion Reactions: No Reported Reaction Past Psychological History: Anxiety, Depression Smoking Status: Former smoker Past Alcohol Use History: None Reported Past Drug Use History: Marijuana - Past Family History Father Family Medical History: Cancer Additional Family Medical History / Comment(s): lung Mother Family Medical History: COPD Additional Family Medical History / Comment(s): still alive General Exam - General Exam Comments Initial Comments: Is a well-developed well-appearing female who is awake alert oriented 4 Limitations: no limitations General appearance: alert, in no apparent distress Head exam: Present: atraumatic, normocephalic, normal inspection Eye exam: Present: normal appearance, PERRL, EOMI. Absent: scleral icterus, conjunctival injection, periorbital swelling ENT exam: Present: mucous membranes dry Neck exam: Present: normal inspection. Absent: tenderness, meningismus, lymphadenopathy Respiratory exam: Present: chest wall tenderness, decreased breath sounds. Absent: respiratory distress, wheezes, rales, rhonchi, stridor Cardiovascular Exam: Present: regular rate, normal rhythm, normal heart sounds. Absent: systolic murmur, diastolic murmur, rubs, gallop, clicks GI/Abdominal exam: Present: soft, normal bowel sounds. Absent: distended, tenderness, guarding, rebound, rigid Extremities exam: Present: normal inspection, full ROM, normal capillary refill. Absent: tenderness, pedal edema, joint swelling, calf tenderness Back exam: Present: normal inspection Neurological exam: Present: alert, oriented X3, CN II-XII intact Psychiatric exam: Present: normal affect, normal mood Skin exam: Present: warm, dry, intact, normal color. Absent: rash Course Vital Signs 09/26/22 11:35 Temperature 98.4 F Pulse Rate 91 Respiratory 20 Rate Blood Pressure 149/88 O2 Sat by Pulse 93 L Oximetry Medical Decision Making - Medical Decision Making I did discuss findings with the patient and multiple family members were present patient does have evidence of a pulmonary embolus right and left with [id number] burden but no heart strain. A she is considering hospice at this time and has not made a definitive decision. Patient will be admitted I did discuss the case initially with Dr. Blakely related with Dr. Larson. Patient be placed on IV heparin with consultation by Dr. Regan and Dr. Mariscal Was pt. sent in by a medical professional or institution? @ Did not speak 21 prior to arrival-[by , PA, DIRECTOR OF NEUROLOGY, urgent care, hospital, or [place] [facility]] Did you speak to anyone other than the patient for history? @ I did discuss the findings with the transporting EMS crew-[EMS, parent, family, police, friend?] Did you review nursing and triage notes? @ Agree -[agree or disagree, why?] Were old charts reviewed? @ Reviewed previous medical records from the last admission he was discharged in the of this month -[outside hosp., previous admissions, EMS record, old EKG, old radiological studies, urgent care reports/EKGs, [place] [facility] records?] Differential Diagnosis? @ Chest pain including cardiac etiology pulmonary etiology musculoskeletal etiology of which were evaluated-[chest pain, altered mental status abdominal pain women, abdominal pain men, vaginal bleeding, weakness, fever, dyspnea, syncope, headache, dizziness, GI bleed, back pain, seizure] EKG interpreted by me (3pts min.)? @ Interpreted by me -[none] X-rays interpreted by me (1pt min.)? @ Interpreted by me-[none] CT interpreted by me (1pt min.)? @ Interpreted by me-[none] U/S interpreted by me (1pt. min.)? @ -[none] What testing was considered but not performed? (CT, X-rays, U/S, labs)? Why? @ Nothing else considered indicated at this time [CT, X-rays, U/S, labs? Why?] What meds were considered but not given? Why? @ -[none] Did you discuss the management of the patient with other professionals? @ Dr. Blakely and Dr. Larson and Dr. Levine -[professionals i.e. Dr, PA, DIRECTOR OF NEUROLOGY, Lab, RT, Psych Nurse, Recording Studio Intern, Geriatric Nursing Assistant, Teacher, Carpet Or Rug Layer Helper, family service caseworker? Give summary] Did you reconcile home meds? @ -[none] Was smoking cessation discussed for >3mins.? @ -[none] Was critical care preformed (if so, how long)? @ Yes 35 minutes-[none] Were there social determinants of health that impacted care today? How? ( Homelessness, low income, unemployed, alcoholism, drug addiction, transportation, low edu. Level, literacy, decrease access to med. care, [place] [facility], rehab)? @ -[Homelessness, low income, unemployed, alcoholism, drug addiction, transportation, low edu. Level, literacy, decrease access to med. care, [place] [facility], rehab?] Was there de-escalation of care discussed even if they declined? (Discuss DNR or withdrawal of care, Hospice)? @ Patient's request DO NOT RESUSCITATE status-[Discuss DNR or withdrawal of care, Hospice?] What co-morbidities impacted this encounter? (DM, HTN, Smoking, COPD, CAD, Cancer, CVA, Hep., AIDS, mental health diagnosis, sleep apnea, morbid obesity)? @ Patient was admitted with diagnosis of pulmonary embolus, chest pain, metastatic lung cancer, dehydration-[DM, HTN, Smoking, COPD, CAD, Cancer, CVA, Hep., AIDS, mental health diagnosis, sleep apnea, morbid obesity?] Was patient admitted / discharged? @ -[hospital course] Undiagnosed new problem with uncertain prognosis? @ -[none] Drug Therapy requiring intensive monitoring for toxicity (Heparin, Nitro, Insulin, Cardizem)? @ Yes-[none] Were any procedures done? @ -[none] Diagnosis/symptom? @ As above-[default] Acute, or Chronic, or Acute on Chronic? @ Acute and chronic-[default] Uncomplicated (without systemic symptoms) or Complicated (systemic symptoms)? @ -[default] Side effects of treatment? @ -[none] Exacerbation, Progression, or Severe Exacerbation] @ -[no] Poses a threat to life or bodily function? @ -[no] - Lab Data Result diagrams: 09/26/22 12:09/26/22 12: Lab Results 09/26/22 09/26/22 09/26/22 Range/Units 12: 12: 12: WBC 9.5 (3.8-10.6) k/uL RBC 3.49 L (3.80-5.40) m/uL Hgb 10.5 L (11.4-16.0) gm/dL Hct 31.0 L (34.0-46.0) % MCV 88.8 (80.0-100.0) fL MCH 30.2 (25.0-35.0) pg MCHC 34.0 (31.0-37.0) g/dL RDW 15.2 (11.5-15.5) % Plt Count 88 L D (150-450) k/uL MPV 10.5 Neutrophils % 84 % Lymphocytes % 5 % Monocytes % 8 % Eosinophils % 1 % Basophils % 0 % Neutrophils # 8.0 H (1.3-7.7) k/uL Lymphocytes # 0.4 L (1.0-4.8) k/uL Monocytes # 0.7 (0-1.0) k/uL Eosinophils # 0.1 (0-0.7) k/uL Basophils # 0.0 (0-0.2) k/uL Manual Slide Review Performed Poikilocytosis Slight PT 13.0 H (9.0-12.0) sec INR 1.3 H (<1.2) APTT 24.6 (22.0-30.0) sec D-Dimer 15.29 H (<0.60) mg/L FEU VBG pH (7.31-7.41) VBG pCO2 (37-51) mmHg VBG HCO3 (24-28) mmol/L Sodium 135 L (137-145) mmol/L Potassium 3.6 (3.5-5.1) mmol/L Chloride 102 (98-107) mmol/L Carbon Dioxide 27 (22-30) mmol/L Anion Gap 6 mmol/L BUN 13 (7-17) mg/dL Creatinine 0.58 (0.52-1.04) mg/dL Est GFR (CKD-EPI)AfAm >90 (>60 ml/min/1.73 sqM) Est GFR (CKD-EPI)NonAf >90 (>60 ml/min/1.73 sqM) Glucose 93 (74-99) mg/dL Plasma Lactic Acid Danish (0.7-2.0) mmol/L Calcium 9.0 (8.4-10.2) mg/dL Magnesium 2.2 (1.6-2.3) mg/dL Total Bilirubin 0.5 (0.2-1.3) mg/dL AST 25 (14-36) U/L ALT 10 (4-34) U/L Alkaline Phosphatase 189 H (38-126) U/L Troponin I (0.000-0.034) ng/mL NT-Pro-B Natriuret Pep pg/mL Total Protein 6.6 (6.3-8.2) g/dL Albumin 3.7 (3.5-5.0) g/dL 09/26/22 09/26/22 09/26/22 Range/Units 12:28 12:28 12:28 WBC (3.8-10.6) k/uL RBC (3.80-5.40) m/uL Hgb (11.4-16.0) gm/dL Hct (34.0-46.0) % MCV (80.0-100.0) fL MCH (25.0-35.0) pg MCHC (31.0-37.0) g/dL RDW (11.5-15.5) % Plt Count (150-450) k/uL MPV Neutrophils % % Lymphocytes % % Monocytes % % Eosinophils % % Basophils % % Neutrophils # (1.3-7.7) k/uL Lymphocytes # (1.0-4.8) k/uL Monocytes # (0-1.0) k/uL Eosinophils # (0-0.7) k/uL Basophils # (0-0.2) k/uL Manual Slide Review Poikilocytosis PT (9.0-12.0) sec INR (<1.2) APTT (22.0-30.0) sec D-Dimer (<0.60) mg/L FEU VBG pH (7.31-7.41) VBG pCO2 (37-51) mmHg VBG HCO3 (24-28) mmol/L Sodium (137-145) mmol/L Potassium (3.5-5.1) mmol/L Chloride (98-107) mmol/L Carbon Dioxide (22-30) mmol/L Anion Gap mmol/L BUN (7-17) mg/dL Creatinine (0.52-1.04) mg/dL Est GFR (CKD-EPI)AfAm (>60 ml/min/1.73 sqM) Est GFR (CKD-EPI)NonAf (>60 ml/min/1.73 sqM) Glucose (74-99) mg/dL Plasma Lactic Acid Danish 0.8 (0.7-2.0) mmol/L Calcium (8.4-10.2) mg/dL Magnesium (1.6-2.3) mg/dL Total Bilirubin (0.2-1.3) mg/dL AST (14-36) U/L ALT (4-34) U/L Alkaline Phosphatase (38-126) U/L Troponin I <0.012 (0.000-0.034) ng/mL NT-Pro-B Natriuret Pep 294 pg/mL Total Protein (6.3-8.2) g/dL Albumin (3.5-5.0) g/dL 09/26/22 Range/Units 13:25 WBC (3.8-10.6) k/uL RBC (3.80-5.40) m/uL Hgb (11.4-16.0) gm/dL Hct (34.0-46.0) % MCV (80.0-100.0) fL MCH (25.0-35.0) pg MCHC (31.0-37.0) g/dL RDW (11.5-15.5) % Plt Count (150-450) k/uL MPV Neutrophils % % Lymphocytes % % Monocytes % % Eosinophils % % Basophils % % Neutrophils # (1.3-7.7) k/uL Lymphocytes # (1.0-4.8) k/uL Monocytes # (0-1.0) k/uL Eosinophils # (0-0.7) k/uL Basophils # (0-0.2) k/uL Manual Slide Review Poikilocytosis PT (9.0-12.0) sec INR (<1.2) APTT (22.0-30.0) sec D-Dimer (<0.60) mg/L FEU VBG pH 7.53 H (7.31-7.41) VBG pCO2 20 L (37-51) mmHg VBG HCO3 16 L (24-28) mmol/L Sodium (137-145) mmol/L Potassium (3.5-5.1) mmol/L Chloride (98-107) mmol/L Carbon Dioxide (22-30) mmol/L Anion Gap mmol/L BUN (7-17) mg/dL Creatinine (0.52-1.04) mg/dL Est GFR (CKD-EPI)AfAm (>60 ml/min/1.73 sqM) Est GFR (CKD-EPI)NonAf (>60 ml/min/1.73 sqM) Glucose (74-99) mg/dL Plasma Lactic Acid Danish (0.7-2.0) mmol/L Calcium (8.4-10.2) mg/dL Magnesium (1.6-2.3) mg/dL Total Bilirubin (0.2-1.3) mg/dL AST (14-36) U/L ALT (4-34) U/L Alkaline Phosphatase (38-126) U/L Troponin I (0.000-0.034) ng/mL NT-Pro-B Natriuret Pep pg/mL Total Protein (6.3-8.2) g/dL Albumin (3.5-5.0) g/dL - EKG Data -: EKG Interpreted by Mn EKG Comments: EKG interpreted by me shows evidence of sinus rhythm 84 the heart rate IL interval 133 QRS duration 125 daily since QTC 387/428 red bundle-branch block pattern - Radiology Data Interpreted by me: Imaging interpreted by me x-ray shows evidence of infiltrate CAT scan showed evidence of pulmonary emboli no evidence of heart strain Critical Care Time Critical Care Time: Yes Total Critical Care Time: 35 Critical Care Time: Critical care time including initial presentation discussed with paramedics history physical labs x-rays CAT scans review of old charting discussion with multiple family members discussion with the admitting physicians admission orders and documentation of the above Disposition Clinical Impression: Pulmonary embolism, Metastatic lung cancer (metastasis from lung to other site), Dehydration, Chest pain, Elevated d-dimer Disposition: ADMITTED IP TO THIS HOSP Condition: Fair Referrals: None,Stated [Primary Care Provider] - 1-2 days Decision Date: 09/26/22 Decision Time: 15:00
[2022-09-26 13:03] LABS: Basophils % (A) 0 %; Eosinophils # (A) 0.1 k/uL (0-0.7); Eosinophils % (A) 1 %; HGB 10.5 gm/dL (11.4-16.0); Lymphocytes # (A) 0.4 k/uL (1.0-4.8); Lymphocytes % (A) 5 %; MCH 30.2 pg (25.0-35.0); MCV 88.8 fL (80.0-100.0); Mean Platelet Volume 10.5; Monocytes # (A) 0.7 k/uL (0-1.0); Monocytes % (A) 8 %; Neutrophils % (A) 84 %; Poikilocytosis Slight; RBC 3.49 m/uL (3.80-5.40); RDW 15.2 % (11.5-15.5); WBC 9.5 k/uL (3.8-10.6)
[2022-09-26 13:06] LABS: INR 1.3 (<1.2); Partial Thromboplastin Time 24.6 sec (22.0-30.0)
--- NOTE | 2022-09-26 13:07 | XR ---
EXAMINATION TYPE: XR chest 2V DATE OF EXAM: 09/26/2022 12:58 PM COMPARISON: Chest radiographs from 09/23/2022 TECHNIQUE: XR chest 2V Frontal and lateral views of the chest. CLINICAL INDICATION:Female, 67 years old with history of difficulty breathing; FINDINGS: Lungs/Pleura: Similar multifocal airspace opacities. No evidence of pneumothorax or pleural effusion. Pulmonary vascularity: Unremarkable. Heart/mediastinum: Cardiomediastinal silhouette is unremarkable. Musculoskeletal: No acute osseous pathology. IMPRESSION: Similar multifocal airspace opacities.
[2022-09-26 13:08] LABS: ALT 10 U/L (4-34); AST 25 U/L (14-36); African American GFR (CKD) >90 (>60 ml/min/1.73 sqM); Albumin 3.7 g/dL (3.5-5.0); Alkaline Phosphatase 189 U/L (38-126); Anion Gap 6 mmol/L; Blood Urea Nitrogen 13 mg/dL (7-17); Carbon Dioxide 27 mmol/L (22-30); Chloride 102 mmol/L (98-107); Glucose 93 mg/dL (74-99); Magnesium 2.2 mg/dL (1.6-2.3); Non-African American GFR(CKD) >90 (>60 ml/min/1.73 sqM); Potassium 3.6 mmol/L (3.5-5.1); Sodium 135 mmol/L (137-145); Total Bilirubin 0.5 mg/dL (0.2-1.3); Total Protein 6.6 g/dL (6.3-8.2)
[2022-09-26 13:30] LABS: Platelet Count 88 k/uL (150-450)
[2022-09-26 13:30] LABS: VBG PH 7.53 (7.31-7.41)
--- NOTE | 2022-09-26 15:31 | CT ---
EXAMINATION TYPE: CT angio chest DATE OF EXAM: 09/26/2022 COMPARISON: 09/26/2022 radiograph HISTORY: 67-year-old female, PE suspected, Difficulty breathing and chest pain. TECHNIQUE: Contiguous axial scanning of the chest performed with IV Contrast, patient injected with 8 0ml mL of Isovue 370. Coronal/sagittal MIP reconstructions performed. CT DLP: 190.9 mGycm Automated exposure control for dose reduction was used. FINDINGS: Heart normal size without pericardial effusion. No flattening of the interventricular septum though t here is reflux of contrast into the IVC. Borderline ectatic ascending aorta 3.5 cm. Mild to moderate atherosclerotic plaque and calcification aortic arch. Conventional radiographic vessel branching anatomy. There appears to be loose clot withi n the proximal left subclavian artery, refer to axial image 30. Large caliber to the main right and left pulmonary arteries measuring up to 2.6 cm. Satisfactory opac ification of the pulmonary arterial system. There is lobar and segmental segment segmental branch emb didi involving the right middle lobe branches. Subsegmental branch emboli within the lingula. Subsegme ntal branch emboli basilar left lower lobe. There is a metallic stent within the left mainstem bronchus. Focal opacity medial left upper lobe with adjacent groundglass and interstitial change. Background mo derate to advanced emphysema. Multifocal patchy peripheral groundglass changes. Possible cavitary change inferior lingula measuring 5.1 cm. This shows nodular soft tissue thickening measuring up to 2.6 cm. Ongoing follow-up to exclude developing neoplasm here. Trace bilateral pleural effusions. Visualized upper abdomen shows mild generalized osteoarthritic change. Bones: Age indeterminate superior endplate deformity of T11 vertebral body. Possible lytic lesion ant erior to T1 and posterior T2 vertebral bodies, sagittal image 78. Additional heterogeneous density of the T3 vertebral body. IMPRESSION: 1. EXAM POSITIVE FOR BILATERAL PULMONARY EMBOLI. EXTENSIVE EMBOLIC MATERIAL THROUGHOUT THE RIGHT MIDD LE LOBE. ADDITIONAL SCATTERED SUBSEGMENTAL BRANCH EMBOLI IN THE LINGULA AND BASILAR LEFT LOWER LOBE. [id number] OVERALL BURDEN. NO CT EVIDENCE FOR RIGHT HEART STRAIN. 2. COPD WITH MODERATELY ADVANCED EMPHYSEMA. THERE ARE TRACE EFFUSIONS AND MULTIFOCAL GROUNDGLASS AND INTERSTITIAL CHANGES. CORRELATE FOR ATYPICAL INTERSTITIAL PULMONARY EDEMA VERSUS MULTIFOCAL PNEUMONIA OR COVID PNEUMONIA. 3. CAVITARY LESION INFERIOR LINGULA MEASURING 5.1 CM. ASSOCIATED SOFT TISSUE NODULARITY MEASURING 2.6 CM. ATYPICAL FUNGAL OR MYCOBACTERIAL INFECTIONS AND CAVITARY NEOPLASM ARE IN THE DIFFERENTIAL. APPRO PRIATE PULMONARY MEDICINE FOLLOW-UP RECOMMENDED. 4. LOOSE PLAQUE PROXIMAL LEFT SUBCLAVIAN ARTERY. THIS COULD SERVE A POTENTIAL EMBOLIC SOURCE. 5. HETEROGENEOUS DENSITY T1, T2, AND T3 VERTEBRAL BODIES. UNABLE TO EXCLUDE UNDERLYING OSSEOUS METAST ASES. CONSIDER MRI AND/OR NUCLEAR MEDICINE WHOLE BODY BONE SCAN TO FURTHER EVALUATE. Multiple attempts to call the ER at 3:26 PM were unsuccessful. Will continue to try following the dic tation.
[2022-09-26] MEDS ORDERED: ACETAMINOPHEN TAB 325 MG TAB PO PRN (16:03)
[2022-09-26] MEDS ORDERED: NALOXONE 0.4 MG/ML 1 ML VIAL IV PRN (16:03)
[2022-09-26] MEDS ORDERED: HEPARIN SODIUM 1,000 UN/ML (10ML VL) IV ONE (16:09)
[2022-09-26] MEDS ORDERED: HEPARIN SODIUM 1,000 UN/ML (10ML VL) IV PRN (16:09)
[2022-09-26] MEDS ORDERED: predniSONE 10 MG TAB PO SCH (16:15)
[2022-09-26] MEDS ORDERED: ALPRAZolam 0.25 MG TAB PO PRN (16:23)
[2022-09-26] MEDS ORDERED: DEXTROSE 50% SYRINGE 50 ML IVP PRN ×2 (16:27)
[2022-09-26] MEDS: HEPARIN SOD,PORK IN 0.45% NACL 25,000 UNIT in 0.45% NACL 1 250ML.BAG IV SCH (16:37)
--- NOTE | 2022-09-26 17:07 | HP ---
HISTORY AND PHYSICAL CHIEF COMPLAINT: Shortness of breath and chest pain. HISTORY OF PRESENT ILLNESS: This is a 67-year-old woman with a past history of COPD and lung cancer, who was recently admitted to [facility] with Coumadin coagulopathy. The patient improved significantly, and the patient went home. The patient is complaining of shortness of breath and chest pain last night. The patient came to [facility] and was found to have extensive bilateral pulmonary emboli and admitted for further evaluation and treatment. There is no history of any fever, rigors, or chills. The patient is receiving Oncology followup from [facility]. The patient is currently no code. The hospice is also being considered at this point. PAST MEDICAL HISTORY: Lung cancer, COPD, and multiple other medical problems. The rest of the history and the rest of the chart are reviewed. HOME MEDICATIONS: Reviewed include prednisone. Doses and rest of the medications reviewed. ALLERGIES: None. FAMILY HISTORY: History of lung cancer. SOCIAL HISTORY: Previous history of smoking. History of THC. REVIEW OF SYSTEMS: Fourteen-point review is negative except as mentioned earlier. PHYSICAL EXAMINATION: VITAL SIGNS: Pulse is 91, blood pressure 114/80, respirations 20. HEENT: Conjunctivae are normal. NECK: No jugular venous distention. CARDIOVASCULAR: S1 and S2. RESPIRATORY: Breath sounds diminished at the bases. Few scattered rhonchi and crackles. ABDOMEN: Soft and nontender. LEGS: No edema. NERVOUS SYSTEM: No focal deficits. SKIN: No ulcers or rashes. JOINTS: No active deforming arthropathy. LABORATORY DATA: WBC is 9.0 and hemoglobin is 10.0. The rest of the labs are reviewed. The CT scan is reviewed personally. ASSESSMENT: 1. Acute bilateral pulmonary embolism. 2. History of lung cancer. 3. Chronic obstructive pulmonary disease. 4. Anxiety. 5. Depression. 6. Nicotine dependence. 7. Hyponatremia. 8. No code. No CPR. No vent. 9. Multiple medical issues. RECOMMENDATIONS: In this 67-year-old woman presented with multiple complex medical issues, we will monitor the patient closely and initiate IV heparin. Consult Dr. Mariscal and Dr. Regan. Bronchodilators. Resume the home medications once they are confirmed. The patient is no code. I would also recommend a short course of IV steroids also. See orders for details. MMODL / IJN: [id number] /
[2022-09-26] MEDS: SODIUM CHLORIDE 0.9% 1,000 ML IV SCH (17:49)
[2022-09-26 18:10] LABS: Glucose,Whole Blood 91 mg/dL (70-110)
[2022-09-26] MEDS: INSULIN ASPART (NovoLOG) 100 UNIT/ML VIAL SQ SCH ×2 (18:17→22:36)
[2022-09-26] MEDS: methylPREDNISolone SOD SUCCI 125 MG/2 ML VIAL IV SCH (18:20)
[2022-09-26] MEDS: HYDROcodone/APAP 10-325MG 1 EACH TAB PO PRN (18:37)
[2022-09-26] MEDS: IPRATROPIUM-ALBUTEROL 3 ML NEB INHALATION SCH (19:39)
[2022-09-26] MEDS: HYDROmorphone 0.5 MG/0.5 ML SYRINGE IVP PRN (21:17)
[2022-09-26] MEDS: LORazepam 0.5 MG TAB PO SCH (21:20)
[2022-09-26] MEDS: AMOXIC-POT CLAV 875-125MG 1 EACH TAB PO SCH (21:20)
[2022-09-26 21:23] LABS: Glucose,Whole Blood 163 mg/dL (70-110)
[2022-09-26] MEDS: DOCUSATE 100 MG CAP PO SCH (22:38)
[2022-09-27] MEDS: methylPREDNISolone SOD SUCCI 125 MG/2 ML VIAL IV SCH ×5 (00:05→23:15)
[2022-09-27] MEDS: CHLORHEXIDINE GLUCONATE 15 ML CUP MUCOUS MEM SCH ×3 (00:25→21:21)
[2022-09-27] MEDS: HYDROmorphone 0.5 MG/0.5 ML SYRINGE IVP PRN ×5 (05:17→23:16)
[2022-09-27 05:29] LABS: Basophils % (A) 0 %; Eosinophils % (A) 0 %; HCT 34.6 % (34.0-46.0); Hypochromasia Slight; Lymphocytes # (A) 0.4 k/uL (1.0-4.8); Lymphocytes % (A) 3 %; MCH 26.9 pg (25.0-35.0); MCV 92.7 fL (80.0-100.0); Mean Platelet Volume 10.2; Monocytes # (A) 0.3 k/uL (0-1.0); Monocytes % (A) 2 %; Neutrophils # (A) 10.7 k/uL (1.3-7.7); Neutrophils % (A) 94 %; RBC 3.74 m/uL (3.80-5.40); RDW 14.7 % (11.5-15.5); WBC 11.4 k/uL (3.8-10.6)
[2022-09-27 05:59] LABS: ALT 16 U/L (4-34); AST 33 U/L (14-36); African American GFR (CKD) >90 (>60 ml/min/1.73 sqM); Albumin 3.9 g/dL (3.5-5.0); Alkaline Phosphatase 230 U/L (38-126); Anion Gap 8 mmol/L; Blood Urea Nitrogen 10 mg/dL (7-17); Calcium 9.7 mg/dL (8.4-10.2); Carbon Dioxide 26 mmol/L (22-30); Chloride 101 mmol/L (98-107); Glucose 127 mg/dL (74-99); Non-African American GFR(CKD) >90 (>60 ml/min/1.73 sqM); Potassium 4.3 mmol/L (3.5-5.1); Sodium 135 mmol/L (137-145); Total Bilirubin 0.5 mg/dL (0.2-1.3); Total Protein 6.8 g/dL (6.3-8.2)
[2022-09-27 06:03] LABS: Platelet Count 89 k/uL (150-450)
[2022-09-27] MEDS: INSULIN ASPART (NovoLOG) 100 UNIT/ML VIAL SQ SCH ×4 (06:30→21:02)
[2022-09-27 06:31] LABS: Glucose,Whole Blood 125 mg/dL (70-110)
[2022-09-27] MEDS: DOCUSATE 100 MG CAP PO SCH ×2 (08:11→21:02)
[2022-09-27] MEDS: HYDROcodone/APAP 10-325MG 1 EACH TAB PO PRN ×2 (08:12→17:51)
[2022-09-27] MEDS: LORazepam 0.5 MG TAB PO SCH ×2 (08:12→21:02)
[2022-09-27] MEDS: AMOXIC-POT CLAV 875-125MG 1 EACH TAB PO SCH ×2 (08:12→21:02)
[2022-09-27] MEDS: AZITHROMYCIN 500 MG TAB PO SCH (08:12)
[2022-09-27] MEDS: IPRATROPIUM-ALBUTEROL 3 ML NEB INHALATION SCH ×4 (08:43→20:30)
[2022-09-27] MEDS: ACETYLCYSTEINE 800 MG/4 ML VIAL INHALATION SCH (08:43)
[2022-09-27] MEDS: SYMBICORT 80-4.5 MCG INHALER INHALATION SCH ×2 (08:44→20:30)
[2022-09-27] MEDS ORDERED: NON FORMULARY DRUG (Osimertinib Mesylate [Tagrisso] 80 MG Tablet) PO SCH (09:00)
--- NOTE | 2022-09-27 11:01 | P.CNPUL ---
History of Present Illness Consult date: 09/20/22 Requesting physician: Romario Larson Reason for consult: dyspnea, chest pain, hypoxemia, pulmonary embolism, lung mass, abnormal CXR/CT Chief complaint: Chest pain. History of present illness: Pulmonary consult dated 09/27/2022. He 7-year-old female seen in the emergency room, room 15. She came into the emergency room on September 26, complaining of shortness of breath, and chest pain. The patient has a history of metastatic lung cancer, and is treated primarily [facility]. In the emergency room, she had a chest x-ray and a CT angiogram. The CT angiogram showed evidence of bilateral pulmonary emboli. The patient is currently receiving immunotherapy at [facility] for her metastatic lung cancer. She has had radiation to the brain. Currently, she is on room air. She's not getting any IV fluids. She is receiving IV heparin. She apparently has had problems with blood thinners including factor X a inhibitors, and Lovenox. White count 11.4, hemoglobin 10, hematocrit 34.6, platelet count 89,000. PTT is 42. Sodium 135, potassium 4.3, chlorides 101, CO2 26, anion gap 8, BUN 10, creatinine 0.56. Chest x-ray shows multifocal airspace opacities, and is essentially unchanged from a chest x-ray that was done a few days earlier, on September 23. CT angiogram was positive for bilateral pulmonary emboli, throughout the right middle lobe, lingula, and left lower lobe. There is no CT evidence of right heart strain. There are changes of COPD, diffuse bilateral infiltrates, and a cavitary lesion, measuring 5.1 cm. Review of Systems REVIEW OF SYSTEMS: CONSTITUTIONAL: [Negative.] NEUROLOGIC: [ Negative.] HEENT: [ Negative.] CARDIAC: Chest pain. PULMONARY: Shortness of breath. GI: Poor appetite. : [Negative.] RHEUMATOLOGIC: [ Negative.] IMMUNOLOGIC: [ Negative.] ENDOCRINE: [Negative. ] DERMATOLOGIC: [Negative.] Past Medical History Past Medical History: Cancer, COPD Additional Past Medical History / Comment(s): lung cancer with mets to the bone History of Any Multi-Drug Resistant Organisms: None Reported Additional Past Surgical History / Comment(s): tubal ligation, stent placed in lungs to assist breathing placed May of 2021 Past Anesthesia/Blood Transfusion Reactions: No Reported Reaction Past Psychological History: Anxiety, Depression Smoking Status: Former smoker Past Alcohol Use History: None Reported Past Drug Use History: Marijuana - Past Family History Father Family Medical History: Cancer Additional Family Medical History / Comment(s): lung Mother Family Medical History: COPD Additional Family Medical History / Comment(s): still alive Medications and Allergies Home Medications Medication Instructions Recorded Confirmed Type Acetylcysteine [Mucomyst 20%] 800 mg INHALATION RT-DAILY 09/22/22 09/26/22 History Chlorhexidine Gluconate [Peridex] 15 ml PO BID 09/22/22 09/26/22 History Docusate Sodium [Dok] 100 mg PO BID 09/22/22 09/26/22 History Fluticasone/Umeclidin/Vilanter 1 puff INHALATION RT-DAILY@1300 09/22/22 09/26/22 History [Trelegy Ellipta 100-62.5-25] HYDROcodone/APAP 10-325MG [Peebles 1 tab PO QID PRN 09/22/22 09/26/22 History 10-325] LORazepam [Ativan] 0.5 mg PO BID 09/22/22 09/26/22 History Ondansetron [Zofran] 4 mg PO TID PRN 09/22/22 09/26/22 History Osimertinib Mesylate [Tagrisso] 80 mg PO DAILY 09/22/22 09/26/22 History Azithromycin [Zithromax] 500 mg PO DAILY 4 Days #4 tab 09/23/22 09/26/22 Rx Albuterol Sulfate [Ventolin HFA] 2 puff INHALATION RT-QID PRN 09/26/22 09/26/22 History Amoxic-Pot Clav 875-125Mg 1 tab PO Q12H 09/26/22 09/26/22 History [Augmentin 875-125] Ipratropium-Albuterol Nebulize 3 ml INHALATION RT-QID 09/26/22 09/26/22 History [Duoneb 0.5 mg-3 mg/3 ml Soln] Ipratropium-Albuterol Nebulize 3 ml INHALATION RT-QID PRN 09/26/22 09/26/22 History [Duoneb 0.5 mg-3 mg/3 ml Soln] Warfarin Sodium 2.5 mg PO DIRECTED@2100 09/26/22 09/26/22 History predniSONE See Taper PO DIRECTED 09/26/22 09/26/22 History Allergies Allergy/AdvReac Type Severity Reaction Status Date / Time No Known Allergies Allergy Verified 09/26/22 13:04 Physical Exam Osteopathic Statement: *. No significant issues noted on an osteopathic structural exam other than those noted in the History and Physical/Consult. Vitals: Vital Signs Temp Pulse Pulse Resp BP BP Pulse Ox 09/27/22 09:05 89 09/27/22 08:49 94 L 09/27/22 08:44 83 09/27/22 04:00 97.6 F 83 14 149/85 100 09/26/22 23:57 97 F L 76 12 127/78 97 09/26/22 20:00 96.9 F L 75 16 118/71 96 09/26/22 19:52 82 09/26/22 19:40 85 09/26/22 16:41 92 24 135/87 93 L 09/26/22 11:35 98.4 F 91 20 149/88 93 L Intake and Output 09/26/22 09/27/22 09/27/22 22:59 06:59 14:59 Intake Total 104.889 Balance 104.889 Intake: Intake, IV Titration 104.889 Amount Heparin Sod,Pork in 0.45% 104.889 NaCl 25,000 unit In 0.45 % NaCl 1 250ml.bag @ 18 UNITS/KG/HR 8.41 mls/hr IV .Q24H [facility] Rx#: [id number] Other: Voiding Method Toilet Toilet # Voids 1 # Bowel Movements 0 No acute distress, oriented 3. The patient is very frail appearing, and appears chronically ill. HEENT examination is grossly unremarkable. Neck supple. Full range of motion. No adenopathy thyromegaly or neck vein distention. Cardiovascular examination reveals regular rhythm rate. S1-S2 normal. No S3 or S4. No discernible murmur noted. Heart rate 89 bpm. Lungs reveal mostly clear breath sounds. Mild scattered rhonchi. No wheezes or crackles. 2 L saturation is 100%. Abdomen soft bowel sounds are heard. No masses or tenderness. Extremities are intact. No cyanosis clubbing or edema. Skin is without rash or lesion. Neurologic examination is brief but nonfocal. Results - Laboratory Findings CBC and BMP: 09/27/22 05:08 09/27/22 05:08 PT/INR, D-dimer PT 13.0 sec (9.0-12.0) H 09/26/22 12:28 INR 1.3 (<1.2) H 09/26/22 12:28 D-Dimer 15.29 mg/L FEU (<0.60) H 09/26/22 12:28 Abnormal lab findings: Abnormal Labs 09/26/22 09/26/22 09/26/22 12:28 12:28 12:28 WBC RBC 3.49 L Hgb 10.5 L Hct 31.0 L MCHC Plt Count 88 L D Neutrophils # 8.0 H Lymphocytes # 0.4 L PT 13.0 H INR 1.3 H APTT D-Dimer 15.29 H VBG pH VBG pCO2 VBG HCO3 Sodium 135 L Glucose POC Glucose (mg/dL) Alkaline Phosphatase 189 H 09/26/22 09/26/22 09/26/22 13:25 21:22 22:25 WBC RBC Hgb Hct MCHC Plt Count Neutrophils # Lymphocytes # PT INR APTT 70.1 H D-Dimer VBG pH 7.53 H VBG pCO2 20 L VBG HCO3 16 L Sodium Glucose POC Glucose (mg/dL) 163 H Alkaline Phosphatase 09/27/22 09/27/22 09/27/22 05:08 05:08 05:08 WBC 11.4 H RBC 3.74 L Hgb 10.0 L Hct MCHC 29.0 L Plt Count 89 L Neutrophils # 10.7 H Lymphocytes # 0.4 L PT INR APTT 41.7 H D-Dimer VBG pH VBG pCO2 VBG HCO3 Sodium 135 L Glucose 127 H POC Glucose (mg/dL) Alkaline Phosphatase 230 H 09/27/22 06:29 WBC RBC Hgb Hct MCHC Plt Count Neutrophils # Lymphocytes # PT INR APTT D-Dimer VBG pH VBG pCO2 VBG HCO3 Sodium Glucose POC Glucose (mg/dL) 125 H Alkaline Phosphatase - Diagnostic Findings Chest x-ray: image reviewed CT scan - chest: image reviewed Assessment and Plan Assessment: Acute bilateral pulmonary emboli, in a patient with metastatic lung cancer, currently on immunotherapy (Tagrisso), at [facility]. History of COPD. History of DVT, left subclavian port. History of lung cancer, with metastasis to the bone and brain. History of anxiety/depression. Prior history of tobacco use. Anorexia/cachexia syndrome of malignancy. Plan: Plan dated 09/27/2022. The patient is seen in the emergency room, room 15. The patient appears to be relatively stable. She is on a couple liters of oxygen. Saturations are 100%. She remains on IV heparin. She has a history of metastatic lung cancer, cu rrently on amiodarone therapy. He was recently seen in the emergency room, because of an elevated INR. The patient has a recent history of left subclavian port thrombosis. That was subsequently removed. She remains on IV heparin. We will continue to follow. Prognosis is certainly guarded. She is a DO NOT RESUSCITATE patient. Time with Patient: Greater than 30
[2022-09-27 12:51] LABS: Glucose,Whole Blood 149 mg/dL (70-110)
[2022-09-27] MEDS: SODIUM CHLORIDE 0.9% 1,000 ML IV SCH (12:52)
[2022-09-27] MEDS: ONDANSETRON 4 MG TAB PO PRN (13:01)
[2022-09-27] MEDS: Osimertinib Mesylate [Tagrisso] 80 MG Tablet PO SCH (13:33)
--- NOTE | 2022-09-27 13:49 | PN ---
PROGRESS NOTE DATE OF SERVICE: 09/27/2022 SUBJECTIVE: This is a 67-year-old woman who was admitted with acute bilateral pulmonary embolism, also had history of lung cancer. The patient also has COPD, patient being closely monitored. The patient is on IV heparin. No chest pain, no palpitations. PAST MEDICAL HISTORY: Reviewed. REVIEW OF SYSTEMS: A 14-point review is negative except as mentioned earlier. PHYSICAL EXAMINATION: VITAL SIGNS: Pulse is 99, blood pressure 138/84, and respirations 18. HEENT: Conjunctivae normal. NECK: No jugular venous distention. CARDIOVASCULAR: S1 and S2. RESPIRATORY: Diminished at the bases, few scattered rhonchi. ABDOMEN: Soft. NERVOUS SYSTEM: No focal deficits. LABS: Sodium 130, potassium 4.3. ASSESSMENT: 1. Acute bilateral pulmonary embolism. 2. History of lung cancer. 3. Chronic obstructive pulmonary disease. 4. Anxiety. 5. Depression. 6. History nicotine dependence. 7. Hyponatremia. 8. No code. No CPR. No vent. RECOMMENDATIONS: Recommend to continue current management, continue symptomatic treatment. Otherwise at this time, I will recommend continue with IV heparin. Closely follow with Pulmonary. I would also recommend hematology oncology evaluation. Also prognosis is guarded. Further recommendations to follow. MMODL / IJN: [id number] /
[2022-09-27] MEDS ORDERED: MAGNESIUM HYDROXIDE 2,400 MG/10 ML CUP PO PRN (17:21)
--- NOTE | 2022-09-27 17:21 | P.CONS ---
History of Present Illness - Reason for Consult Consult date: 09/27/22 PE, on anticoagulation, hx of Lung CA Requesting physician: Daron Squires - Chief Complaint SOB, chest pain - History of Present Illness Ms. Titus is a 67-year-old female patient with a history of NSCLC since 2019 with mets to the bone, who presented to the ED for SOB and chest pain. Pt was recently discharged from hospital for abnormal INR. Pt presented at that time with INR greater than 10. She has received vitamin K during that visit, and INR was 4.0 on discharge. Pt was instructed to change coumadin admin, to 5mg alt with 2.5mg and to f/u with Oncologist at within 3 days for reevaluation. Pt reports today that she was unable to followup with Onc, as the pain in her chest, ribs and upper back was not controlled with home medications, it is not controlled at this time. She reports being prescribed Felton 10mg by her Oncologist. CT chest showed bilateral PEs, neew, loose plaque in left subclavian artery as potential embolic source. Pt currently being heparinized. INR 1.3 upon admission. Today, WBC 11.4, Hgb, 10.0, PLT 89. She is being followed by Dr. Jinny Lowry at [facility]. She's currently being treated with targeted agent Tagrisso-EGFR mutation-been on since 2019. She had developed a DVT and PE approx 6 months ago, after placement of left subclavian port, which has subsequently been removed. She has been on Eliquis, Lovenox, and Xarelto-pt not sure why, denied that she had recurrent clots but "no improvement" in existing clots. Warfarin started approx 4 weeks ago, started on 5mg daily. Review of Systems 10 point ROS is neg except as stated in HPI Past Medical History Past Medical History: Cancer, COPD Additional Past Medical History / Comment(s): lung cancer with mets to the bone History of Any Multi-Drug Resistant Organisms: None Reported Additional Past Surgical History / Comment(s): tubal ligation, stent placed in lungs to assist breathing placed May of 2021 Past Anesthesia/Blood Transfusion Reactions: No Reported Reaction Past Psychological History: Anxiety, Depression Smoking Status: Former smoker Past Alcohol Use History: None Reported Past Drug Use History: Marijuana - Past Family History Father Family Medical History: Cancer Additional Family Medical History / Comment(s): lung Mother Family Medical History: COPD Additional Family Medical History / Comment(s): still alive Medications and Allergies Home Medications Medication Instructions Recorded Confirmed Type Acetylcysteine [Mucomyst 20%] 800 mg INHALATION RT-DAILY 09/22/22 09/26/22 History Chlorhexidine Gluconate [Peridex] 15 ml PO BID 09/22/22 09/26/22 History Docusate Sodium [Dok] 100 mg PO BID 09/22/22 09/26/22 History Fluticasone/Umeclidin/Vilanter 1 puff INHALATION RT-DAILY@1300 09/22/22 09/26/22 History [Trelegy Ellipta 100-62.5-25] HYDROcodone/APAP 10-325MG [Felton 1 tab PO QID PRN 09/22/22 09/26/22 History 10-325] LORazepam [Ativan] 0.5 mg PO BID 09/22/22 09/26/22 History Ondansetron [Zofran] 4 mg PO TID PRN 09/22/22 09/26/22 History Osimertinib Mesylate [Tagrisso] 80 mg PO DAILY 09/22/22 09/26/22 History Azithromycin [Zithromax] 500 mg PO DAILY 4 Days #4 tab 09/23/22 09/26/22 Rx Albuterol Sulfate [Ventolin HFA] 2 puff INHALATION RT-QID PRN 09/26/22 09/26/22 History Amoxic-Pot Clav 875-125Mg 1 tab PO Q12H 09/26/22 09/26/22 History [Augmentin 875-125] Ipratropium-Albuterol Nebulize 3 ml INHALATION RT-QID 09/26/22 09/26/22 History [Duoneb 0.5 mg-3 mg/3 ml Soln] Ipratropium-Albuterol Nebulize 3 ml INHALATION RT-QID PRN 09/26/22 09/26/22 History [Duoneb 0.5 mg-3 mg/3 ml Soln] Warfarin Sodium 2.5 mg PO DIRECTED@2100 09/26/22 09/26/22 History predniSONE See Taper PO DIRECTED 09/26/22 09/26/22 History Allergies Allergy/AdvReac Type Severity Reaction Status Date / Time No Known Allergies Allergy Verified 09/26/22 13:04 Physical Exam Vitals: Vital Signs Temp Pulse Pulse Resp BP BP Pulse Ox 09/27/22 09:05 89 09/27/22 08:49 94 L 09/27/22 08:44 83 09/27/22 04:00 97.6 F 83 14 149/85 100 09/26/22 23:57 97 F L 76 12 127/78 97 09/26/22 20:00 96.9 F L 75 16 118/71 96 09/26/22 19:52 82 09/26/22 19:40 85 09/26/22 16:41 92 24 135/87 93 L 09/26/22 11:35 98.4 F 91 20 149/88 93 L Intake and Output 09/26/22 09/27/22 09/27/22 22:59 06:59 14:59 Intake Total 104.889 Balance 104.889 Intake: Intake, IV Titration 104.889 Amount Heparin Sod,Pork in 0.45% 104.889 NaCl 25,000 unit In 0.45 % NaCl 1 250ml.bag @ 18 UNITS/KG/HR 8.41 mls/hr IV .Q24H [facility] Rx#: [id number] Other: Voiding Method Toilet Toilet # Voids 1 # Bowel Movements 0 - Constitutional General appearance: cooperative, mild distress, thin - EENT Eyes: anicteric sclerae, EOMI ENT: hearing grossly normal - Neck Neck: normal ROM - Respiratory breathing even and unlabored - Integumentary Integumentary: normal - Neurologic grossly Neurologic: CNII-XII intact - Musculoskeletal Musculoskeletal: strength equal bilaterally - Psychiatric Psychiatric: A&O x's 3, appropriate affect, intact judgment & insight Results CBC & Chem 7: 09/27/22 05:08 09/27/22 05:08 Labs: Abnormal Lab Results - Last 24 Hours (Table) 09/26/22 09/26/22 09/26/22 Range/Units 12:28 12:28 12:28 WBC (3.8-10.6) k/uL RBC 3.49 L (3.80-5.40) m/uL Hgb 10.5 L (11.4-16.0) gm/dL Hct 31.0 L (34.0-46.0) % MCHC (31.0-37.0) g/dL Plt Count 88 L D (150-450) k/uL Neutrophils # 8.0 H (1.3-7.7) k/uL Lymphocytes # 0.4 L (1.0-4.8) k/uL PT 13.0 H (9.0-12.0) sec INR 1.3 H (<1.2) APTT (22.0-30.0) sec D-Dimer 15.29 H (<0.60) mg/L FEU VBG pH (7.31-7.41) VBG pCO2 (37-51) mmHg VBG HCO3 (24-28) mmol/L Sodium 135 L (137-145) mmol/L Glucose (74-99) mg/dL POC Glucose (mg/dL) (70-110) mg/dL Alkaline Phosphatase 189 H (38-126) U/L 09/26/22 09/26/22 09/26/22 Range/Units 13:25 21:22 22:25 WBC (3.8-10.6) k/uL RBC (3.80-5.40) m/uL Hgb (11.4-16.0) gm/dL Hct (34.0-46.0) % MCHC (31.0-37.0) g/dL Plt Count (150-450) k/uL Neutrophils # (1.3-7.7) k/uL Lymphocytes # (1.0-4.8) k/uL PT (9.0-12.0) sec INR (<1.2) APTT 70.1 H (22.0-30.0) sec D-Dimer (<0.60) mg/L FEU VBG pH 7.53 H (7.31-7.41) VBG pCO2 20 L (37-51) mmHg VBG HCO3 16 L (24-28) mmol/L Sodium (137-145) mmol/L Glucose (74-99) mg/dL POC Glucose (mg/dL) 163 H (70-110) mg/dL Alkaline Phosphatase (38-126) U/L 09/27/22 09/27/22 09/27/22 Range/Units 05:08 05:08 05:08 WBC 11.4 H (3.8-10.6) k/uL RBC 3.74 L (3.80-5.40) m/uL Hgb 10.0 L (11.4-16.0) gm/dL Hct (34.0-46.0) % MCHC 29.0 L (31.0-37.0) g/dL Plt Count 89 L (150-450) k/uL Neutrophils # 10.7 H (1.3-7.7) k/uL Lymphocytes # 0.4 L (1.0-4.8) k/uL PT (9.0-12.0) sec INR (<1.2) APTT 41.7 H (22.0-30.0) sec D-Dimer (<0.60) mg/L FEU VBG pH (7.31-7.41) VBG pCO2 (37-51) mmHg VBG HCO3 (24-28) mmol/L Sodium 135 L (137-145) mmol/L Glucose 127 H (74-99) mg/dL POC Glucose (mg/dL) (70-110) mg/dL Alkaline Phosphatase 230 H (38-126) U/L 09/27/22 Range/Units 06:29 WBC (3.8-10.6) k/uL RBC (3.80-5.40) m/uL Hgb (11.4-16.0) gm/dL Hct (34.0-46.0) % MCHC (31.0-37.0) g/dL Plt Count (150-450) k/uL Neutrophils # (1.3-7.7) k/uL Lymphocytes # (1.0-4.8) k/uL PT (9.0-12.0) sec INR (<1.2) APTT (22.0-30.0) sec D-Dimer (<0.60) mg/L FEU VBG pH (7.31-7.41) VBG pCO2 (37-51) mmHg VBG HCO3 (24-28) mmol/L Sodium (137-145) mmol/L Glucose (74-99) mg/dL POC Glucose (mg/dL) 125 H (70-110) mg/dL Alkaline Phosphatase (38-126) U/L Microbiology - Last 24 Hours (Table) 12/26/22 12:22 Blood Culture - Final Blood Abdominal x-ray: report reviewed CT scan - chest: report reviewed Assessment and Plan (1) Metastatic lung cancer (metastasis from lung to other site) Current Visit: Yes Status: Acute Priority: High Code(s): C34.90 - MALIGNANT NEOPLASM OF UNSP PART OF UNSP BRONCHUS OR LUNG SNOMED Code(s): 96383530 (2) Pulmonary embolism Current Visit: Yes Status: Acute Priority: High Code(s): I26.99 - OTHER PULMONARY EMBOLISM WITHOUT ACUTE COR PULMONALE SNOMED Code(s): 51865164 Plan: Continue Heparin drip for now. Considering d/c patient on lovenox vs pradexa, due to difficulty managing therapeutic INR levels on coumadin. However, want to discuss treatment with patient's Oncologist, Dr. Lowry. Called was placed to office, and awaiting return phone call. Continue Tagrisso treatment for now Reviewed pain meds, change in frequency for now. She does have IV dilaudid available for now. Meds for prevention of narcotic induced constipation ordered attests: I have performed H&P and developed impression and planof care for patient, discussed with dictator. I agree with dictated note. documented as a scribe
[2022-09-27 17:27] LABS: Glucose,Whole Blood 143 mg/dL (70-110)
[2022-09-27] MEDS: HEPARIN SOD,PORK IN 0.45% NACL 25,000 UNIT in 0.45% NACL 1 250ML.BAG IV SCH (17:44)
[2022-09-27 19:42] LABS: Glucose,Whole Blood 149 mg/dL (70-110)
[2022-09-28] MEDS: methylPREDNISolone SOD SUCCI 125 MG/2 ML VIAL IV SCH ×2 (06:10→12:31)
[2022-09-28 06:11] LABS: Glucose,Whole Blood 136 mg/dL (70-110)
[2022-09-28] MEDS: INSULIN ASPART (NovoLOG) 100 UNIT/ML VIAL SQ SCH ×4 (06:11→23:05)
[2022-09-28] MEDS: SYMBICORT 80-4.5 MCG INHALER INHALATION SCH ×2 (08:40→20:04)
[2022-09-28] MEDS: ACETYLCYSTEINE 800 MG/4 ML VIAL INHALATION SCH (08:40)
[2022-09-28] MEDS: IPRATROPIUM-ALBUTEROL 3 ML NEB INHALATION SCH ×4 (08:40→20:04)
[2022-09-28 08:51] LABS: Basophils % (A) 0 %; Eosinophils % (A) 0 %; HCT 32.1 % (34.0-46.0); HGB 10.7 gm/dL (11.4-16.0); Lymphocytes # (A) 0.4 k/uL (1.0-4.8); Lymphocytes % (A) 2 %; MCH 30.3 pg (25.0-35.0); MCHC 33.3 g/dL (31.0-37.0); Mean Platelet Volume 10.4; Monocytes # (A) 0.6 k/uL (0-1.0); Monocytes % (A) 2 %; Neutrophils # (A) 21.1 k/uL (1.3-7.7); Neutrophils % (A) 95 %; Platelet Count 116 k/uL (150-450); RBC 3.53 m/uL (3.80-5.40); WBC 22.3 k/uL (3.8-10.6)
[2022-09-28 09:10] LABS: African American GFR (CKD) >90 (>60 ml/min/1.73 sqM); Anion Gap 5 mmol/L; Blood Urea Nitrogen 11 mg/dL (7-17); Carbon Dioxide 26 mmol/L (22-30); Chloride 102 mmol/L (98-107); Glucose 138 mg/dL (74-99); Non-African American GFR(CKD) >90 (>60 ml/min/1.73 sqM); Potassium 3.9 mmol/L (3.5-5.1); Sodium 133 mmol/L (137-145)
[2022-09-28] MEDS: AZITHROMYCIN 500 MG TAB PO SCH (09:32)
[2022-09-28] MEDS: DOCUSATE 100 MG CAP PO SCH ×2 (09:32→20:13)
[2022-09-28] MEDS: LORazepam 0.5 MG TAB PO SCH ×2 (09:32→20:13)
[2022-09-28] MEDS: Osimertinib Mesylate [Tagrisso] 80 MG Tablet PO SCH (09:37)
[2022-09-28] MEDS: SODIUM CHLORIDE 0.9% 1,000 ML IV SCH (10:02)
[2022-09-28] MEDS: CHLORHEXIDINE GLUCONATE 15 ML CUP MUCOUS MEM SCH ×2 (10:53→23:13)
[2022-09-28] MEDS: HYDROcodone/APAP 10-325MG 1 EACH TAB PO PRN ×2 (10:54→23:12)
[2022-09-28 11:42] LABS: Glucose,Whole Blood 144 mg/dL (70-110)
--- NOTE | 2022-09-28 12:56 | P.PN ---
Subjective Progress Note Date: 09/28/22 Principal diagnosis: PE, metastatic EGFR mutated non-small cell lung cancer In follow-up today patient is reporting significant improvement in the chest discomfort she was having yesterday on admit. She did have a small amount of hemoptysis 1, no other bleeding reported. No other complaints on a focused review of systems. Objective - Vital Signs Vital signs: Vital Signs Temp 98.3 F 09/28/22 12:00 Pulse 105 H 09/28/22 12:00 Resp 18 09/28/22 12:00 BP 143/72 09/28/22 12:00 Pulse Ox 97 09/28/22 12:00 FiO2 Intake & Output 09/27/22 09/28/22 09/28/22 18:59 06:59 18:59 Intake Total 180 385.111 Balance 180 385.111 Weight 46.72 kg Intake: Intake, IV Titration 145.111 Amount Heparin Sod,Pork in 0.45% 145.111 NaCl 25,000 unit In 0.45 % NaCl 1 250ml.bag @ 18 UNITS/KG/HR 8.41 mls/hr IV .Q24H [facility] Rx#: [id number] Oral 180 240 Other: Voiding Method Toilet Toilet # Voids 2 - Constitutional General appearance: Present: cooperative, no acute distress, thin - EENT Eyes: Present: anicteric sclerae, EOMI ENT: Present: hearing grossly normal - Respiratory Details: Respirations even and unlabored. Small amt slightly blood-tinged mucus noted in emesis basin. No other blood noted in 2 other mucus specimens. - Cardiovascular Rhythm: regular Heart sounds: normal: S1, S2 Abnormal Heart Sounds: Absent: systolic murmur, diastolic murmur, rub, S3 Gallop, S4 Gallop, click, other - Gastrointestinal General gastrointestinal: Present: normal bowel sounds, soft - Neurologic Neurologic: Present: CNII-XII intact - Musculoskeletal Musculoskeletal: Present: strength equal bilaterally - Psychiatric Psychiatric: Present: A&O x's 3, appropriate affect, intact judgment & insight - Labs CBC & Chem 7: 09/28/22 08:21 09/28/22 08:21 Labs: Abnormal Lab Results - Last 24 Hours (Table) 09/27/22 09/27/22 09/27/22 Range/Units 12:48 17:25 19:41 WBC (3.8-10.6) k/uL RBC (3.80-5.40) m/uL Hgb (11.4-16.0) gm/dL Hct (34.0-46.0) % Plt Count (150-450) k/uL Neutrophils # (1.3-7.7) k/uL Lymphocytes # (1.0-4.8) k/uL APTT (22.0-30.0) sec Sodium (137-145) mmol/L Glucose (74-99) mg/dL POC Glucose (mg/dL) 149 H 143 H 149 H (70-110) mg/dL 09/28/22 09/28/22 09/28/22 Range/Units 06:10 08:21 08:21 WBC 22.3 H (3.8-10.6) k/uL RBC 3.53 L (3.80-5.40) m/uL Hgb 10.7 L (11.4-16.0) gm/dL Hct 32.1 L (34.0-46.0) % Plt Count 116 L (150-450) k/uL Neutrophils # 21.1 H (1.3-7.7) k/uL Lymphocytes # 0.4 L (1.0-4.8) k/uL APTT 41.1 H (22.0-30.0) sec Sodium (137-145) mmol/L Glucose (74-99) mg/dL POC Glucose (mg/dL) 136 H (70-110) mg/dL 09/28/22 09/28/22 Range/Units 08:21 11:41 WBC (3.8-10.6) k/uL RBC (3.80-5.40) m/uL Hgb (11.4-16.0) gm/dL Hct (34.0-46.0) % Plt Count (150-450) k/uL Neutrophils # (1.3-7.7) k/uL Lymphocytes # (1.0-4.8) k/uL APTT (22.0-30.0) sec Sodium 133 L (137-145) mmol/L Glucose 138 H (74-99) mg/dL POC Glucose (mg/dL) 144 H (70-110) mg/dL Microbiology - Last 24 Hours (Table) 09/26/22 12:22 Blood Culture Gram Stain - Preliminary Blood Blood Culture - Preliminary Staphylococcus epidermidis 09/26/22 12:10 Blood Culture - Preliminary Blood No Growth after 24 hours 09/26/22 12:22 Blood Culture - Final Blood Assessment and Plan (1) Metastatic lung cancer (metastasis from lung to other site) Current Visit: Yes Status: Acute Priority: High Code(s): C34.90 - MALIGNANT NEOPLASM OF UNSP PART OF UNSP BRONCHUS OR LUNG SNOMED Code(s): 10177238 (2) Pulmonary embolism Current Visit: Yes Status: Acute Priority: High Code(s): I26.99 - OTHER PULMONARY EMBOLISM WITHOUT ACUTE COR PULMONALE SNOMED Code(s): 22855957 Plan: Discussed case with Patient's primary Oncologist Dr. Lowry. Recommendation for anticoagulation is Lovenox twice a day. Prescription sent to [facility]. Consulted case management to verify co-pay. Once we have a co-pay verification, initiate Lovenox 40 mg subcutaneously, turn off heparin drip. Patient will continue on 40 mg of Lovenox twice a day. Continue Tagrisso treatment. Reviewed pain meds, change in frequency for now. The change in frequency was r eported to patient's prescribing Oncologist. Patient was reporting better pain control at this time. Meds for prevention of narcotic induced constipation ordered Time with Patient: Greater than 30
[2022-09-28 14:29] VITALS: BMI 15.7
--- NOTE | 2022-09-28 14:38 | P.PN ---
Subjective Progress Note Date: 09/28/22 Principal diagnosis: Chest pain and shortness of breath. Pulmonary consult dated 09/27/2022. He 7-year-old female seen in the emergency room, room 15. She came into the emergency room on September 26, complaining of shortness of breath, and chest pain. The patient has a history of metastatic lung cancer, and is treated primarily [facility]. In the emergency room, she had a chest x-ray and a CT angiogram. The CT angiogram showed evidence of bilateral pulmonary emboli. The patient is currently receiving immunotherapy at [facility] for her metastatic lung cancer. She has had radiation to the brain. Currently, she is on room air. She's not getting any IV fluids. She is receiving IV heparin. She apparently has had problems with blood thinners including factor X a inhibitors, and Lovenox. White count 11.4, hemoglobin 10, hematocrit 34.6, platelet count 89,000. PTT is 42. Sodium 135, potassium 4.3, chlorides 101, CO2 26, anion gap 8, BUN 10, creatinine 0.56. Chest x-ray shows multifocal airspace opacities, and is essentially unchanged from a chest x-ray that was done a few days earlier, on September 23. CT angiogram was positive for michelle ateral pulmonary emboli, throughout the right middle lobe, lingula, and left lower lobe. There is no CT evidence of right heart strain. There are changes of COPD, diffuse bilateral infiltrates, and a cavitary lesion, measuring 5.1 cm. Progress note dated 09/28/2022. 67-year-old female seen in consultation yesterday. She was actually seen in the emergency room. Today, she is seen in room 384. She came into the emergency department on September 26, complaining of shortness of breath, and chest pain. She has a history of metastatic lung cancer, and is primarily treated at [facility]. A CT angiogram revealed bilateral pulmonary emboli, without evidence of right heart strain. The patient is currently seen today, and appears to be doing a bit better. She is currently on 2 L of oxygen. She's getting IV heparin. White count 22.3, hemoglobin 10.7, hematocrit 32.1, and platelet count is 116,000. PTT is 41.1. Sodium 133, potassium 3.9, chlorides 102, CO2 26, BUN 11, and creatinine 0.6. Objective - Vital Signs Vital signs: Vital Signs Temp 98.3 F 09/28/22 12:00 Pulse 105 H 09/28/22 12:00 Resp 18 09/28/22 12:00 BP 143/72 09/28/22 12:00 Pulse Ox 97 09/28/22 12:00 FiO2 Intake & Output 09/27/22 09/28/22 09/28/22 18:59 06:59 18:59 Intake Total 180 385.111 Balance 180 385.111 Weight 46.72 kg 45.8 kg Intake: Intake, IV Titration 145.111 Amount Heparin Sod,Pork in 0.45% 145.111 NaCl 25,000 unit In 0.45 % NaCl 1 250ml.bag @ 18 UNITS/KG/HR 8.41 mls/hr IV .Q24H [facility] Rx#: [id number] Oral 180 240 Other: Voiding Method Toilet Toilet # Voids 2 - Exam No acute distress, oriented 3. The patient is very frail appearing, and appears chronically ill. HEENT examination is grossly unremarkable. Neck supple. Full range of motion. No adenopathy thyromegaly or neck vein distention. Cardiovascular examination reveals regular rhythm rate. S1-S2 normal. No S3 or S4. No discernible murmur noted. Heart rate 100 bpm. Lungs reveal mostly clear breath sounds. Mild scattered rhonchi. No wheezes or crackles. 2 L saturation is 97 %. Abdomen soft bowel sounds are heard. No masses or tenderness. Extremities are intact. No cyanosis clubbing or edema. Skin is without rash or lesion. Neurologic examination is brief but nonfocal. - Labs CBC & Chem 7: 09/28/22 08:21 09/28/22 08:21 Labs: Abnormal Lab Results - Last 24 Hours (Table) 09/27/22 09/27/22 09/28/22 Range/Units 17:25 19:41 06:10 WBC (3.8-10.6) k/uL RBC (3.80-5.40) m/uL Hgb (11.4-16.0) gm/dL Hct (34.0-46.0) % Plt Count (150-450) k/uL Neutrophils # (1.3-7.7) k/uL Lymphocytes # (1.0-4.8) k/uL APTT (22.0-30.0) sec Sodium (137-145) mmol/L Glucose (74-99) mg/dL POC Glucose (mg/dL) 143 H 149 H 136 H (70-110) mg/dL 09/28/22 09/28/22 09/28/22 Range/Units 08:21 08:21 08:21 WBC 22.3 H (3.8-10.6) k/uL RBC 3.53 L (3.80-5.40) m/uL Hgb 10.7 L (11.4-16.0) gm/dL Hct 32.1 L (34.0-46.0) % Plt Count 116 L (150-450) k/uL Neutrophils # 21.1 H (1.3-7.7) k/uL Lymphocytes # 0.4 L (1.0-4.8) k/uL APTT 41.1 H (22.0-30.0) sec Sodium 133 L (137-145) mmol/L Glucose 138 H (74-99) mg/dL POC Glucose (mg/dL) (70-110) mg/dL 09/28/22 Range/Units 11:41 WBC (3.8-10.6) k/uL RBC (3.80-5.40) m/uL Hgb (11.4-16.0) gm/dL Hct (34.0-46.0) % Plt Count (150-450) k/uL Neutrophils # (1.3-7.7) k/uL Lymphocytes # (1.0-4.8) k/uL APTT (22.0-30.0) sec Sodium (137-145) mmol/L Glucose (74-99) mg/dL POC Glucose (mg/dL) 144 H (70-110) mg/dL Microbiology - Last 24 Hours (Table) 09/26/22 12:22 Blood Culture Gram Stain - Preliminary Blood Blood Culture - Preliminary Staphylococcus epidermidis 09/26/22 12:10 Blood Culture - Preliminary Blood No Growth after 24 hours 09/26/22 12:22 Blood Culture - Final Blood Assessment and Plan Assessment: Acute bilateral pulmonary emboli, in a patient with metastatic lung cancer, currently on immunotherapy (Tagrisso), at [facility]. History of COPD. History of DVT, left subclavian port. History of lung cancer, with metastasis to the bone and brain. History of anxiety/depression. Prior history of tobacco use. Anorexia/cachexia syndrome of malignancy. Plan: Plan dated 09/27/2022. The patient is seen in the emergency room, room 15. The patient appears to be relatively stable. She is on a couple liters of oxygen. Saturations are 100%. She remains on IV heparin. She has a history of metastatic lung cancer, currently on amiodarone therapy. He was recently seen in the emergency room, because of an elevated INR. The patient has a recent history of left subclavian port thrombosis. That was subsequently removed. She remains on IV heparin. We will continue to follow. Prognosis is certainly guarded. She is a DO NOT RESUSCITATE patient. Plan dated 09/28/2022. The patient is seen today in room 384. She was actually talking to her son on the phone, and we did talk to the son as well. The patient remains on IV heparin. The patient is on 2 L of oxygen. Labs, x-rays, and medications are all reviewed. The patient is being treated at [facility] for her metastatic lung cancer, and is currently on immune therapy. The patient is a DO NOT RESUSCITATE patient. Medical oncology is following along. Prognosis is certainly guarded. Time with Patient: Less than 30
[2022-09-28] MEDS: HYDROmorphone 0.5 MG/0.5 ML SYRINGE IVP PRN ×2 (15:31→20:13)
[2022-09-28] MEDS: methylPREDNISolone SOD SUCCI 40 MG/ML 1 ML VIAL IV SCH ×2 (15:32→23:12)
[2022-09-28 16:50] LABS: Glucose,Whole Blood 137 mg/dL (70-110)
[2022-09-28] MEDS: HEPARIN SOD,PORK IN 0.45% NACL 25,000 UNIT in 0.45% NACL 1 250ML.BAG IV SCH ×2 (17:07→18:41)
[2022-09-28 19:44] LABS: Glucose,Whole Blood 138 mg/dL (70-110)
[2022-09-28] MEDS: ENOXAPARIN 40 MG/0.4 ML SYRINGE SQ SCH (20:13)
--- NOTE | 2022-09-29 | PN ---
PROGRESS NOTE DATE OF SERVICE: 09/28/2022 SUBJECTIVE: This is a 67-year-old woman who was admitted with acute bilateral pulmonary embolism, is on IV heparin. No chest pain. No palpitations. No fever. OBJECTIVE: VITAL SIGNS: On exam, pulse is 105, blood pressure 140/70, respirations 18. CHEST: Clear to auscultation. CARDIOVASCULAR: S1, S2. ABDOMEN: Soft. NERVOUS SYSTEM: No focal deficits. LABORATORY DATA: Labs are reviewed. ASSESSMENT: 1. Acute bilateral pulmonary embolism. 2. History of lung cancer. 3. Chronic obstructive pulmonary disease. 4. Anxiety. 5. Depression. 6. History of nicotine dependence. RECOMMENDATIONS: Recommend to continue current management and symptomatic treatment. Otherwise at this time, I would cut down the steroids. Continue the IV heparin and repeat labs. Possible Eliquis on discharge. Further recommendations to follow. MMODL / IJN: [id number] /
[2022-09-29] MEDS: HYDROmorphone 0.5 MG/0.5 ML SYRINGE IVP PRN ×4 (04:24→21:15)
[2022-09-29 06:19] LABS: Glucose,Whole Blood 112 mg/dL (70-110)
[2022-09-29] MEDS: SODIUM CHLORIDE 0.9% 1,000 ML IV SCH (06:39)
[2022-09-29] MEDS: INSULIN ASPART (NovoLOG) 100 UNIT/ML VIAL SQ SCH ×4 (06:39→21:14)
[2022-09-29] MEDS: LORazepam 0.5 MG TAB PO SCH ×2 (08:12→21:15)
[2022-09-29] MEDS: CHLORHEXIDINE GLUCONATE 15 ML CUP MUCOUS MEM SCH ×2 (08:12→21:14)
[2022-09-29] MEDS: DOCUSATE 100 MG CAP PO SCH (08:12)
[2022-09-29] MEDS: methylPREDNISolone SOD SUCCI 40 MG/ML 1 ML VIAL IV SCH (08:12)
[2022-09-29] MEDS: ENOXAPARIN 40 MG/0.4 ML SYRINGE SQ SCH ×2 (08:43→21:14)
[2022-09-29] MEDS: Osimertinib Mesylate [Tagrisso] 80 MG Tablet PO SCH (08:43)
[2022-09-29 09:48] LABS: Basophils % (A) 0 %; Eosinophils % (A) 0 %; HCT 30.1 % (34.0-46.0); HGB 10.1 gm/dL (11.4-16.0); Lymphocytes # (A) 0.4 k/uL (1.0-4.8); Lymphocytes % (A) 2 %; MCH 30.5 pg (25.0-35.0); MCHC 33.5 g/dL (31.0-37.0); MCV 91.1 fL (80.0-100.0); Monocytes # (A) 0.7 k/uL (0-1.0); Monocytes % (A) 4 %; Neutrophils % (A) 92 %; Platelet Count 102 k/uL (150-450); RDW 15.2 % (11.5-15.5); WBC 17.4 k/uL (3.8-10.6)
[2022-09-29 10:14] LABS: African American GFR (CKD) >90 (>60 ml/min/1.73 sqM); Anion Gap 5 mmol/L; Blood Urea Nitrogen 16 mg/dL (7-17); Calcium 8.9 mg/dL (8.4-10.2); Carbon Dioxide 28 mmol/L (22-30); Chloride 101 mmol/L (98-107); Glucose 107 mg/dL (74-99); Non-African American GFR(CKD) >90 (>60 ml/min/1.73 sqM); Sodium 134 mmol/L (137-145)
[2022-09-29] MEDS: HYDROcodone/APAP 10-325MG 1 EACH TAB PO PRN (10:49)
[2022-09-29] MEDS: IPRATROPIUM-ALBUTEROL 3 ML NEB INHALATION SCH ×4 (10:56→19:19)
[2022-09-29] MEDS: ACETYLCYSTEINE 800 MG/4 ML VIAL INHALATION SCH (11:01)
[2022-09-29] MEDS: SYMBICORT 80-4.5 MCG INHALER INHALATION SCH ×2 (11:02→19:19)
[2022-09-29 11:46] LABS: Glucose,Whole Blood 147 mg/dL (70-110)
--- NOTE | 2022-09-29 14:54 | P.PN ---
Subjective This is a pleasant [age] years old female with past medical history of metastatic lung Cancer to the bone and brain, she follows up with [facility]. Presents with respiratory symptoms found to be secondary to bilateral pulmonary embolism. She was on multiple regimens of blood thinners including warfarin, prior to admission she was on Lovenox 40 mg twice daily. INR 1.3. Patient evaluated by pulmonary and hematology/oncology team, no evidence of strength of the right ventricle reactive vision currently placed on therapeutic dose of Lovenox 80 mg twice daily, patient is afebrile and did inject herself with Lovenox last night and this morning. Also patient with some evidence of COPD exacerbation and currently she is on IV Solu-Medrol, also she is on normal saline 50 mg oral Zithromax Today labs showing improving leukocytosis of 17,000, hemoglobin 10.1, She's mildly tachypneic, she got tachycardic with movement, heart rate was 124 earlier, currently she is in 80s, checked with bed side nurse. Also checked with bed side nurse currently her co-pay for Lovenox $0. Also patient some evidence of positive blood culture with staph epidermidis, most likely contamination. We'll ask for ID team consult. Patient does not uncomfortable to go home today. Her taqreso medication is on hold Patient currently does not have any port CT a showing bilateral pulmonary emboli, COPD with advanced emphysema, cavitary lesion in the anterior lingula measuring 5.1 cm heterogeneous density, T1, T2 and T3 vertebral body unable to exclude osseous metastasis Patient had diarrhea once to twice yesterday and today, she refused her Colace which is discontinued today. No abdominal pain, no vomiting, her abdomen looks soft. Patient does not want to physical therapy evaluation, she does not want "subacute rehab but she is open and it able to hold his ordered Objective - Vital Signs Vital signs: Vital Signs Temp 97.8 F 09/29/22 11:30 Pulse 124 H 09/29/22 11:30 Resp 20 09/29/22 11:30 BP 121/84 09/29/22 11:30 Pulse Ox 99 09/29/22 11:30 FiO2 Intake & Output 09/28/22 09/29/22 09/29/22 18:59 06:59 18:59 Intake Total 625.111 462 Balance 625.111 462 Weight 45.8 kg Intake: Intake, IV Titration 145.111 Amount Heparin Sod,Pork in 0.45% 145.111 NaCl 25,000 unit In 0.45 % NaCl 1 250ml.bag @ 18 UNITS/KG/HR 8.41 mls/hr IV .Q24H [facility] Rx#: [id number] Oral 480 462 Other: Voiding Method Toilet Toilet Toilet # Voids 2 1 - Exam GENERAL: The patient is alert and oriented x3, not in any acute distress. Well developed, well nourished. Generally weak HEENT: Pupils are round and equally reacting to light. EOMI. No scleral icterus. No conjunctival pallor. Normocephalic, atraumatic. No pharyngeal erythema. No th yromegaly. CARDIOVASCULAR: S1 and S2 present. No murmurs, rubs, or gallops. -PULMONARY: Chest is clear to auscultation, no crackles. Scattered bilateral wheezing ABDOMEN: Soft, nontender, nondistended, normoactive bowel sounds. No palpable organomegaly. MUSCULOSKELETAL: No joint swelling or deformity. EXTREMITIES: No cyanosis, clubbing, or pedal edema. NEUROLOGICAL: Gross neurological examination did not reveal any focal deficits. SKIN: No rashes. no petechiae. - Labs CBC & Chem 7: 09/29/22 09:18 09/29/22 09:18 Labs: Abnormal Lab Results - Last 24 Hours (Table) 09/28/22 09/28/22 09/28/22 Range/Units 11:41 16:48 18:00 WBC (3.8-10.6) k/uL RBC (3.80-5.40) m/uL Hgb (11.4-16.0) gm/dL Hct (34.0-46.0) % Plt Count (150-450) k/uL Neutrophils # (1.3-7.7) k/uL Lymphocytes # (1.0-4.8) k/uL APTT 73.0 H (22.0-30.0) sec Sodium (137-145) mmol/L Glucose (74-99) mg/dL POC Glucose (mg/dL) 144 H 137 H (70-110) mg/dL 09/28/22 09/29/22 09/29/22 Range/Units 19:43 06:17 09:18 WBC 17.4 H (3.8-10.6) k/uL RBC 3.30 L (3.80-5.40) m/uL Hgb 10.1 L (11.4-16.0) gm/dL Hct 30.1 L (34.0-46.0) % Plt Count 102 L (150-450) k/uL Neutrophils # 16.0 H (1.3-7.7) k/uL Lymphocytes # 0.4 L (1.0-4.8) k/uL APTT (22.0-30.0) sec Sodium (137-145) mmol/L Glucose (74-99) mg/dL POC Glucose (mg/dL) 138 H 112 H (70-110) mg/dL 09/29/22 Range/Units 09:18 WBC (3.8-10.6) k/uL RBC (3.80-5.40) m/uL Hgb (11.4-16.0) gm/dL Hct (34.0-46.0) % Plt Count (150-450) k/uL Neutrophils # (1.3-7.7) k/uL Lymphocytes # (1.0-4.8) k/uL APTT (22.0-30.0) sec Sodium 134 L (137-145) mmol/L Glucose 107 H (74-99) mg/dL POC Glucose (mg/dL) (70-110) mg/dL Microbiology - Last 24 Hours (Table) 09/26/22 12:22 Blood Culture Gram Stain - Final Blood Blood Culture - Final Staphylococcus epidermidis 09/26/22 12:10 Blood Culture - Preliminary Blood No Growth after 48 hours Assessment and Plan Assessment: metastatic lung cancer. Bone and brain, CT of the chest showing cavitary lesion in the anterior lingula measuring 5.1 cm heterogeneous density. She is on tagresso for her lung cancer at home which is held now Bilateral pulmonary embolism without right ventricular strain Intake COPD exacerbation Generalized weakness, patient declined subacute rehab but agreeable to home health care Plan: Continue with Lovenox 80 mg twice daily. Risks benefits are explained for the patient in details and she is agreeable Continue with oral Zithromax Continue with IV Solu-Medrol Continue with gentle hydration normal saline pulmonary and hematology oncology team consult Surgical team consult Labs and medication were reviewed.. Continue same treatment. Continue with symptomatic treatment. Resume home medication. Monitor labs and vitals. DVT and GI prophylaxis. Further recommendations as per clinical course of the patient DVT prophylaxis: Subcutaneous Lovenox GI Prophylaxis: Pepcid PT/OT: Patient declined Prognosis is guarded
--- NOTE | 2022-09-29 16:13 | P.PN ---
Subjective Progress Note Date: 09/29/22 He 7-year-old female seen in the emergency room, room 15. She came into the emergency room on September 26, complaining of shortness of breath, and chest pain. The patient has a history of metastatic lung cancer, and is treated primarily [facility]. In the emergency room, she had a chest x-ray and a CT angiogram. The CT angiogram showed evidence of bilateral pulmonary emboli. The patient is currently receiving immunotherapy at [facility] for her metastatic lung cancer. She has had radiation to the brain. Currently, she is on room air. She's not getting any IV fluids. She is receiving IV heparin. She apparently has had problems with blood thinners including factor X a inh ibitors, and Lovenox. White count 11.4, hemoglobin 10, hematocrit 34.6, platelet count 89,000. PTT is 42. Sodium 135, potassium 4.3, chlorides 101, CO2 26, anion gap 8, BUN 10, creatinine 0.56. Chest x-ray shows multifocal airspace opacities, and is essentially unchanged from a chest x-ray that was done a few days earlier, on September 23. CT angiogram was positive for bilateral pulmonary emboli, throughout the right middle lobe, lingula, and left lower lobe. There is no CT evidence of right heart strain. There are changes of COPD, diffuse bilateral infiltrates, and a cavitary lesion, measuring 5.1 cm. Progress note dated 09/28/2022. 67-year-old female seen in consultation yesterday. She was actually seen in the emergency room. Today, she is seen in room 384. She came into the emergency department on September 26, complaining of shortness of breath, and chest pain. She has a history of metastatic lung cancer, and is primarily treated at [facility]. A CT angiogram revealed bilateral pulmonary emboli, without evidence of right heart strain. The patient is currently seen today, and appears to be doing a bit better. She is currently on 2 L of oxygen. She's getting IV heparin. White count 22.3, hemoglobin 10.7, hematocrit 32.1, and platelet count is 116,000. PTT is 41.1. Sodium 133, potassium 3.9, chlorides 102, CO2 26, BUN 11, and creatinine 0.6. The patient is seen today 09/29/2022 in follow-up on the selective care unit. She is resting comfortably in bed. Awake and alert in no acute distress. No worsening shortness of breath, cough or congestion. No fever chills. No hemoptysis. Maintaining good O2 saturations in the high 90s on 2 L/m per nasal cannula. Blood cultures revealed no growth. White count 17.4. Hemoglobin 10.1 platelets 102. Sodium 134. Potassium 4.0. BUN 16. Creatinine 0.69. She's been initiated on Lovenox 40 mg subcu twice a day per oncology. Objective - Vital Signs Vital signs: Vital Signs Temp 97.8 F 09/29/22 11:30 Pulse 114 H 09/29/22 15:24 Resp 16 09/29/22 14:00 BP 121/84 09/29/22 11:30 Pulse Ox 99 09/29/22 11:30 FiO2 Intake & Output 09/28/22 09/29/22 09/29/22 18:59 06:59 18:59 Intake Total 625.111 472 Balance 625.111 472 Weight 45.8 kg Intake: IV 10 Invasive Line 2 10 Intake, IV Titration 145.111 Amount Heparin Sod,Pork in 0.45% 145.111 NaCl 25,000 unit In 0.45 % NaCl 1 250ml.bag @ 18 UNITS/KG/HR 8.41 mls/hr IV .Q24H [facility] Rx#: [id number] Oral 480 462 Other: Voiding Method Toilet Toilet Toilet # Voids 2 1 - Exam GENERAL EXAM: Alert, very pleasant 67-year-old female, on 2 L nasal cannula, comfortable in no apparent distress. HEAD: Normocephalic. EYES: Normal reaction of pupils, equal size. NOSE: Clear with pink turbinates. THROAT: No erythema or exudates. NECK: No masses, no JVD. CHEST: No chest wall deformity. LUNGS: Equal air entry with few scattered rhonchi. CVS: S1 and S2 normal with no audible murmur, regular rhythm. ABDOMEN: No hepatosplenomegaly, normal bowel sounds, no guarding or rigidity. SPINE: No scoliosis or deformity SKIN: No rashes CENTRAL NERVOUS SYSTEM: No focal deficits, tone is normal in all 4 extremities. EXTREMITIES: There is no peripheral edema. No clubbing, no cyanosis. Peripheral pulses are intact. - Labs CBC & Chem 7: 09/29/22 09:18 09/29/22 09:18 Labs: Abnormal Lab Results - Last 24 Hours (Table) 09/28/22 09/28/22 09/28/22 Range/Units 16:48 18:00 19:43 WBC (3.8-10.6) k/uL RBC (3.80-5.40) m/uL Hgb (11.4-16.0) gm/dL Hct (34.0-46.0) % Plt Count (150-450) k/uL Neutrophils # (1.3-7.7) k/uL Lymphocytes # (1.0-4.8) k/uL APTT 73.0 H (22.0-30.0) sec Sodium (137-145) mmol/L Glucose (74-99) mg/dL POC Glucose (mg/dL) 137 H 138 H (70-110) mg/dL 09/29/22 09/29/22 09/29/22 Range/Units 06:17 09:18 09:18 WBC 17.4 H (3.8-10.6) k/uL RBC 3.30 L (3.80-5.40) m/uL Hgb 10.1 L (11.4-16.0) gm/dL Hct 30.1 L (34.0-46.0) % Plt Count 102 L (150-450) k/uL Neutrophils # 16.0 H (1.3-7.7) k/uL Lymphocytes # 0.4 L (1.0-4.8) k/uL APTT (22.0-30.0) sec Sodium 134 L (137-145) mmol/L Glucose 107 H (74-99) mg/dL POC Glucose (mg/dL) 112 H (70-110) mg/dL 09/29/22 Range/Units 11:43 WBC (3.8-10.6) k/uL RBC (3.80-5.40) m/uL Hgb (11.4-16.0) gm/dL Hct (34.0-46.0) % Plt Count (150-450) k/uL Neutrophils # (1.3-7.7) k/uL Lymphocytes # (1.0-4.8) k/uL APTT (22.0-30.0) sec Sodium (137-145) mmol/L Glucose (74-99) mg/dL POC Glucose (mg/dL) 147 H (70-110) mg/dL Microbiology - Last 24 Hours (Table) 09/26/22 12:10 Blood Culture - Preliminary Blood No Growth after 72 hours 09/26/22 12:22 Blood Culture Gram Stain - Final Blood Blood Culture - Final Staphylococcus epidermidis Assessment and Plan Assessment: Acute bilateral pulmonary emboli, in a patient with metastatic lung cancer, currently on immunotherapy (Tagrisso), at [facility]. History of COPD. History of DVT, left subclavian port. History of lung cancer, with metastasis to the bone and brain. History of anxiety/depression. Prior history of tobacco use. Anorexia/cachexia syndrome of malignancy. Plan: The patient was seen and evaluated Medications and labs reviewed Initiated on Lovenox per oncology Cleared for discharge from the pulmonary standpoint We will see as needed I have personally seen and examined the patient, performed the documentation and the assessment and plan as written. Number of minutes spent on the visit: 10.
[2022-09-29 16:41] LABS: Glucose,Whole Blood 119 mg/dL (70-110)
[2022-09-29] MEDS: FAMOTIDINE 20 MG/2 ML VIAL IV SCH ×2 (16:51→21:21)
[2022-09-29 20:14] LABS: Glucose,Whole Blood 115 mg/dL (70-110)
--- NOTE | 2022-09-29 21:11 | P.CONS ---
History of Present Illness - Reason for Consult Consult date: 09/29/22 bacteremia Requesting physician: Luis E Sheet - History of Present Illness Patient is a 67-year-old female with a past medical history significant for metastatic lung cancer for the patient has received most of her treatment at [facility] currently on immunotherapy but she never received any chemotherapy for it, patient presenting to the ER on 09/23/2022 for evaluation of anterior chest pain sharp in nature moderate intensity with associated shortness of breath patient did have a CT angiogram of the chest that shows bilateral pulmonary emboli extensive throughout the right middle lobe also shows evidence of cavitary lesion inferior lingula but no significant consoli dation patient has been afebrile during this hospital stay currently on 2 L nasal cannula she did have a normal white count elevation subsequent white count has been elevated as the patient has been started on Solu-Medrol patient has been treated with Lovenox for her PE patient did have a blood culture drawn coming positive for staph epi that has prompted this infectious disease consultation. On today's evaluation that is 09/29/2022, the patient denies having any fever or any chills patient is breathing more comfortably and chest pain has decreased in intensity patient did have occasional cough but no sputum production denies having any nausea no vomiting no abdominal pain or diarrhea patient did not have any ports or PICC lines Review of Systems Positive points has been mentioned in HPI complete review could not be obtained because of his underlying mental status Past Medical History Past Medical History: Cancer, COPD Additional Past Medical History / Comment(s): lung cancer with mets to the bone History of Any Multi-Drug Resistant Organisms: None Reported Additional Past Surgical History / Comment(s): tubal ligation, stent placed in lungs to assist breathing placed May of 2021 Past Anesthesia/Blood Transfusion Reactions: No Reported Reaction Past Psychological History: Anxiety, Depression Smoking Status: Former smoker Past Alcohol Use History: None Reported Past Drug Use History: Marijuana - Past Family History Father Family Medical History: Cancer Additional Family Medical History / Comment(s): lung Mother Family Medical History: COPD Additional Family Medical History / Comment(s): still alive Medications and Allergies Home Medications Medication Instructions Recorded Confirmed Type Chlorhexidine Gluconate [Peridex] 15 ml PO BID 09/22/22 09/26/22 History Fluticasone/Umeclidin/Vilanter 1 puff INHALATION RT-DAILY@1300 09/22/22 09/26/22 History [Trelegy Ellipta 100-62.5-25] HYDROcodone/APAP 10-325MG [Gallitzin 1 tab PO QID PRN 09/22/22 09/26/22 History 10-325] LORazepam [Ativan] 0.5 mg PO BID 09/22/22 09/26/22 History Ondansetron [Zofran] 4 mg PO TID PRN 09/22/22 09/26/22 History Osimertinib Mesylate [Tagrisso] 80 mg PO DAILY 09/22/22 09/26/22 History Ipratropium-Albuterol Nebulize 3 ml INHALATION RT-QID PRN 09/26/22 09/26/22 History [Duoneb 0.5 mg-3 mg/3 ml Soln] Enoxaparin [Lovenox] 40 mg SQ Q12H #60 each 09/28/22 Rx Acetylcysteine [Mucomyst 20%] 800 mg INHALATION RT-DAILY #1 each 09/30/22 Rx Albuterol Sulfate [Ventolin HFA] 2 puff INHALATION RT-QID PRN #1 09/30/22 Rx each Docusate Sodium [Dok] 100 mg PO BID PRN #0 09/30/22 09/26/22 Rx Famotidine [Pepcid] 20 mg PO BID #60 tablet 09/30/22 Rx Ipratropium-Albuterol Nebulize 3 ml INHALATION RT-QID #10 09/30/22 Rx [Duoneb 0.5 mg-3 mg/3 ml Soln] mgofpheneq predniSONE 10 mg PO DIRECTED #30 tab 09/30/22 Rx Allergies Allergy/AdvReac Type Severity Reaction Status Date / Time No Known Allergies Allergy Verified 09/26/22 13:04 Physical Exam Vitals: Vital Signs Temp Pulse Pulse Resp BP Pulse Ox 09/29/22 11:19 138 H 09/29/22 11:06 113 H 98 09/29/22 08:00 97.9 F 83 18 148/94 95 09/29/22 04:00 98.6 F 75 16 134/78 96 09/29/22 01:20 89 17 09/29/22 00:00 98.3 F 89 17 107/67 94 L 09/28/22 20:17 98 09/28/22 20:04 99 09/28/22 20:00 97.8 F 102 H 18 131/80 96 09/28/22 16:15 96 09/28/22 16:05 92 09/28/22 16:00 98.2 F 94 20 137/79 93 L 09/28/22 14:00 20 09/28/22 12:00 98.3 F 105 H 18 143/72 97 09/28/22 11:58 116 H 09/28/22 11:50 116 H Intake and Output 09/28/22 09/29/22 09/29/22 22:59 06:59 14:59 Intake Total 0 462 Balance 0 462 Intake: Intake, IV Titration 0 Amount Heparin Sod,Pork in 0.45% 0 NaCl 25,000 unit In 0.45 % NaCl 1 250ml.bag @ 18 UNITS/KG/HR 8.41 mls/hr IV .Q24H [facility] Rx#: [id number] Oral 462 Other: Voiding Method Toilet Toilet Toilet # Voids 1 1 GENERAL DESCRIPTION: An elderly female lying in bed, no distress. No tachypnea or accessory muscle of respiration use. HEENT: Shows Pallor , no scleral icterus. Oral mucous membrane is dry. No pharyngeal erythema or thrush NECK: Trachea central, no thyromegaly. LUNGS: Unlabored breathing. Decreased breath sounds at the base. No wheeze or crackle. HEART: S1, S2, regular rate and rhythm. No loud murmur ABDOMEN: Soft, no tenderness , guarding or rigidity, no organomegaly EXTREMITIES: No edema of feet. SKIN: No rash, no masses palpable. NEUROLOGICAL: The patient is sleepy orientation could not be determined. Results CBC & Chem 7: 09/29/22 09:18 09/29/22 09:18 Labs: Abnormal Lab Results - Last 24 Hours (Table) 09/28/22 09/28/22 09/28/22 Range/Units 11:41 16:48 18:00 WBC (3.8-10.6) k/uL RBC (3.80-5.40) m/uL Hgb (11.4-16.0) gm/dL Hct (34.0-46.0) % Plt Count (150-450) k/uL Neutrophils # (1.3-7.7) k/uL Lymphocytes # (1.0-4.8) k/uL APTT 73.0 H (22.0-30.0) sec Sodium (137-145) mmol/L Glucose (74-99) mg/dL POC Glucose (mg/dL) 144 H 137 H (70-110) mg/dL 09/28/22 09/29/22 09/29/22 Range/Units 19:43 06:17 09:18 WBC 17.4 H (3.8-10.6) k/uL RBC 3.30 L (3.80-5.40) m/uL Hgb 10.1 L (11.4-16.0) gm/dL Hct 30.1 L (34.0-46.0) % Plt Count 102 L (150-450) k/uL Neutrophils # 16.0 H (1.3-7.7) k/uL Lymphocytes # 0.4 L (1.0-4.8) k/uL APTT (22.0-30.0) sec Sodium (137-145) mmol/L Glucose (74-99) mg/dL POC Glucose (mg/dL) 138 H 112 H (70-110) mg/dL 09/29/22 Range/Units 09:18 WBC (3.8-10.6) k/uL RBC (3.80-5.40) m/uL Hgb (11.4-16.0) gm/dL Hct (34.0-46.0) % Plt Count (150-450) k/uL Neutrophils # (1.3-7.7) k/uL Lymphocytes # (1.0-4.8) k/uL APTT (22.0-30.0) sec Sodium 134 L (137-145) mmol/L Glucose 107 H (74-99) mg/dL POC Glucose (mg/dL) (70-110) mg/dL Microbiology - Last 24 Hours (Table) 09/26/22 12:22 Blood Culture Gram Stain - Final Blood Blood Culture - Final Staphylococcus epidermidis 09/26/22 12:10 Blood Culture - Preliminary Blood No Growth after 48 hours Assessment and Plan (1) Positive blood culture Current Visit: Yes Status: Acute Code(s): R78.81 - BACTEREMIA SNOMED Code(s): 255040142 Plan: 1patient was negative blood culture with staph epi likely representing skin contamination as the patient has no clinical disease to go along with it, no need for vancomycin. 2patient presented to hospital with chest pain has been diagnosed with michelle ateral PE currently being treated with Lovenox and pulmonary is following the patient CT did not show any evidence of pneumonia and no need for systemic antibiotic therapy at this point. We will follow on clinical condition and cultures to further adjust medication if needed Thank you for this consultation we will follow the patient along with you Time with Patient: Greater than 30
[2022-09-30] MEDS: SODIUM CHLORIDE 0.9% 1,000 ML IV SCH ×2 (01:19→20:14)
[2022-09-30] MEDS: HYDROmorphone 0.5 MG/0.5 ML SYRINGE IVP PRN ×4 (04:00→20:50)
[2022-09-30 06:18] LABS: Glucose,Whole Blood 80 mg/dL (70-110)
[2022-09-30] MEDS: INSULIN ASPART (NovoLOG) 100 UNIT/ML VIAL SQ SCH ×4 (06:20→20:17)
[2022-09-30] MEDS: ACETYLCYSTEINE 800 MG/4 ML VIAL INHALATION SCH (07:31)
[2022-09-30] MEDS: IPRATROPIUM-ALBUTEROL 3 ML NEB INHALATION SCH ×4 (07:31→20:58)
[2022-09-30] MEDS: SYMBICORT 80-4.5 MCG INHALER INHALATION SCH ×2 (07:51→20:59)
[2022-09-30] MEDS: LORazepam 0.5 MG TAB PO SCH ×2 (08:11→20:13)
[2022-09-30] MEDS: CHLORHEXIDINE GLUCONATE 15 ML CUP MUCOUS MEM SCH ×2 (08:11→20:13)
[2022-09-30] MEDS: FAMOTIDINE 20 MG/2 ML VIAL IV SCH ×2 (08:11→20:13)
[2022-09-30] MEDS: Osimertinib Mesylate [Tagrisso] 80 MG Tablet PO SCH (08:11)
[2022-09-30] MEDS: ENOXAPARIN 40 MG/0.4 ML SYRINGE SQ SCH ×2 (08:11→20:14)
[2022-09-30] MEDS: ONDANSETRON 4 MG TAB PO PRN ×2 (08:13→15:33)
--- NOTE | 2022-09-30 11:55 | P.EN ---
Patient qualify for home oxygen. Diagnoses: Lung cancer and pulmonary embolism
[2022-09-30 11:59] LABS: Glucose,Whole Blood 79 mg/dL (70-110)
--- NOTE | 2022-09-30 13:19 | CDI ---
Documentation Clarification Form Date: 09/30/2022 12:51:36 PM From: Renetta Lehman RN, CCDS Admit Date: 09/26/2022 04:03:00 PM Patient Name: Vee Titus Visit Number: [id number] Discharge Date: ATTENTION: The Clinical Documentation Specialists (CDI) and [facility] Coding Staff appreciate your assistance in clarifying documentation. Please respond to the clarification below the line at the bottom and electronically sign. The CDI & [facility] Coding staff will review the response and follow-up if needed. Please note: Queries are made part of the Legal Health Record. If you have any questions, please contact the author of this message via ITS. Dr. Smith E Sheet The Registered Dietitian assessment on 09/27/22 indicates this patient meets criteria for underweight. Based on this information and the findings below, is there an additional diagnosis that is clinically appropriate for this patient? 09/29 pulmonary progress notes: Anorexia/cachexia syndrome of malignancy. History/Risk Factors: Lung cancer with metastasis to bone and brain, COPD, Pulmonary embolism, Former smoker Clinical Indicators: 67-year-old present to ER with complaints of shortness of breath and chest pain. She has history of metastatic lung cancer. RD Consult Assessment: Underweight Current BMI: 15.8 Insufficient energy intake: Patient's intake is not adequate to meet nutritional needs for weight gain/maintenance Weight Loss: 22% since involuntary loss since June 2021 Physical appearance: anorexia, cachexia Treatment: Dietary Consult: Yes General/healthful diet Supplements: Enlive TID Monitor supplement and PO intake, Is there an additional diagnosis that is clinically appropriate for this patient? [ ] Mild Protein-Calorie Malnutrition [ ] Moderate Protein-Calorie Malnutrition [ ] Severe Protein-Calorie Malnutrition [ ] Other condition, please specify [ ] Unable to Determine (Template Last Revised: November 2020) Moderate Protein-Calorie Malnutrition MTDD
[2022-09-30] MEDS: HYDROcodone/APAP 10-325MG 1 EACH TAB PO PRN (13:48)
--- NOTE | 2022-09-30 15:14 | P.PN ---
Subjective Progress Note Date: 09/30/22 Principal diagnosis: Positive blood culture Patient is a 67-year-old female with a past medical history significant for metastatic lung cancer for the patient has received most of her treatment at [facility] currently on immunotherapy but she never received any chemotherapy for it, patient presenting to the ER on 09/23/2022 for evaluation of anterior chest pain sharp in nature, patient did have evidence of PE also have a positive blood culture prompting this infectious disease consultation On today's evaluation that is 09/30/2022, patient denies having any fever or any chills, patient mentioned she did have chest pain this morning seemed to improve this afternoon, patient denies having any worsening cough or sputum production no nausea no vomiting no abdominal pain no diarrhea Objective - Vital Signs Vital signs: Vital Signs Temp 97.8 F 09/30/22 08:33 Pulse 100 09/30/22 11:17 Resp 22 09/30/22 08:33 BP 161/96 09/30/22 08:33 Pulse Ox 92 L 09/30/22 08:33 FiO2 Intake & Output 09/29/22 09/30/22 09/30/22 18:59 06:59 18:59 Intake Total 472 358 0 Balance 472 358 0 Weight 45.8 kg Intake: IV 10 Invasive Line 2 10 Oral 462 358 0 Other: Voiding Method Toilet Toilet Toilet # Voids 2 1 1 - Exam GENERAL DESCRIPTION: An elderly female lying in bed in no distress RESPIRATORY SYSTEM: Unlabored breathing , course breath sounds with occasional wheeze HEART: S1 S2 regular rate and rhythm , ABDOMEN: Soft , no tenderness EXTREMITIES: No edema feet - Labs CBC & Chem 7: 09/29/22 09:18 09/29/22 09:18 Labs: Abnormal Lab Results - Last 24 Hours (Table) 09/29/22 09/29/22 Range/Units 16:39 20:12 POC Glucose (mg/dL) 119 H 115 H (70-110) mg/dL Microbiology - Last 24 Hours (Table) 09/26/22 12:10 Blood Culture - Preliminary Blood No Growth after 72 hours 09/26/22 12:22 Blood Culture Gram Stain - Final Blood Blood Culture - Final Staphylococcus epidermidis Assessment and Plan (1) Positive blood culture Current Visit: Yes Status: Acute Code(s): R78.81 - BACTEREMIA SNOMED Code(s): 050720400 Plan: 1patient was negative blood culture with staph epi likely representing skin contamination as the patient has no clinical disease to go along with it, patient is currently being monitor closely off antibiotic therapy 2patient presented to hospital with chest pain has been diagnosed with bilateral PE currently being treated with Lovenox and pulmonary is following the patient CT did not show any evidence of pneumonia and no need for systemic antibiotic therapy at this point. Time with Patient: Less than 30
[2022-09-30 16:59] VITALS: RESP 16
[2022-09-30 17:10] LABS: Glucose,Whole Blood 114 mg/dL (70-110)
[2022-09-30 19:56] VITALS: TEMP 97.8
[2022-09-30 20:03] LABS: Glucose,Whole Blood 89 mg/dL (70-110)
--- NOTE | 2022-09-30 20:09 | P.PN ---
Subjective This is a pleasant [age] years old female with past medical history of metastatic lung Cancer to the bone and brain, she follows up with [facility]. Presents with respiratory symptoms found to be secondary to bilateral pulmonary embolism. She was on multiple regimens of blood thinners including warfarin, prior to admission she was on Lovenox 40 mg twice daily. INR 1.3. Patient evaluated by pulmonary and hematology/oncology team, no evidence of strength of the right ventricle reactive vision currently placed on therapeutic dose of Lovenox 80 mg twice daily, patient is afebrile and did inject herself with Lovenox last night and this morning. Also patient with some evidence of COPD exacerbation and currently she is on IV Solu-Medrol, also she is on normal saline 50 mg oral Zithromax Today labs showing improving leukocytosis of 17,000, hemoglobin 10.1, She's mildly tachypneic, she got tachycardic with movement, heart rate was 124 earlier, currently she is in 80s, checked with bed side nurse. Also checked with bed side nurse currently her co-pay for Lovenox $0. Also patient some evidence of positive blood culture with staph epidermidis, most likely contamination. We'll ask for ID team consult. Patient does not uncomfortable to go home today. Her taqreso medication is on hold Patient currently does not have any port CT a showing bilateral pulmonary emboli, COPD with advanced emphysema, cavitary lesion in the anterior lingula measuring 5.1 cm heterogeneous density, T1, T2 and T3 vertebral body unable to exclude osseous metastasis Patient had diarrhea once to twice yesterday and today, she refused her Colace which is discontinued today. No abdominal pain, no vomiting, her abdomen looks soft. Patient does not want to physical therapy evaluation, she does not want "subacute rehab but she is open and it able to hold his ordered 09/30/2022 Patient clinically is doing well, currently she denies any respiratory symptoms, no diarrhea Hemodynamically stable Patient was cleared for discharge by all consultants including pulmonary and hematology oncology Home oxygen evaluation done and patient qualify and delivered at bedside Patient is medically stable for discharge However patient wanted to wait until tomorrow morning because she is going to her brother house and she has some family issues *her niece has viral infection and she did concerns and she wants to wait in the hospital tomorrow, patient was anxious and refused to leave today. Benefits and alternatives are explained for her and she agrees to stay in hospital despite risks. For example risk of opportunistic infection. Patient confirmed to me that she has gone to follow-up with Dr. Muro her oncologist on 10/20. Patient is agreeable to be discharged on IV Lovenox, she can do self injection. I discussed with the staff co-pay is $0 Objective - Vital Signs Vital signs: Vital Signs Temp 97.8 F 09/30/22 12:38 Pulse 88 09/30/22 15:44 Resp 18 09/30/22 12:38 BP 130/67 09/30/22 12:38 Pulse Ox 94 L 09/30/22 12:38 FiO2 Intake & Output 09/29/22 09/30/22 09/30/22 18:59 06:59 18:59 Intake Total 472 358 0 Balance 472 358 0 Weight 45.8 kg Intake: IV 10 Invasive Line 2 10 Oral 462 358 0 Other: Voiding Method Toilet Toilet Toilet # Voids 2 1 1 - Exam GENERAL: The patient is alert and oriented x3, not in any acute distress. Well developed, well nourished. Generally weak HEENT: Pupils are round and equally reacting to light. EOMI. No scleral icterus. No conjunctival pallor. Normocephalic, atraumatic. No pharyngeal erythema. No thyromegaly. CARDIOVASCULAR: S1 and S2 present. No murmurs, rubs, or gallops. -PULMONARY: Chest is clear to auscultation, no crackles. Scattered bilateral wheezing ABDOMEN: Soft, nontender, nondistended, normoactive bowel sounds. No palpable organomegaly. MUSCULOSKELETAL: No joint swelling or deformity. EXTREMITIES: No cyanosis, clubbing, or pedal edema. NEUROLOGICAL: Gross neurological examination did not reveal any focal deficits. SKIN: No rashes. no petechiae. - Labs CBC & Chem 7: 09/29/22 09:18 09/29/22 09:18 Labs: Abnormal Lab Results - Last 24 Hours (Table) 09/29/22 09/29/22 Range/Units 16:39 20:12 POC Glucose (mg/dL) 119 H 115 H (70-110) mg/dL Microbiology - Last 24 Hours (Table) 09/26/22 12:10 Blood Culture - Preliminary Blood No Growth after 96 hours 09/26/22 12:22 Blood Culture Gram Stain - Final Blood Blood Culture - Final Staphylococcus epidermidis Assessment and Plan Assessment: metastatic lung cancer. Bone and brain, CT of the chest showing cavitary lesion in the anterior lingula measuring 5.1 cm heterogeneous density. She is on tagresso for her lung cancer at home which is held now Bilateral pulmonary embolism without right ventricular strain Intake COPD exacerbation Generalized weakness, patient declined subacute rehab but agreeable to home health care Plan: Continue with Lovenox 80 mg twice daily. Risks benefits are explained for the patient in details and she is agreeable Continue with oral Zithromax Continue with IV Solu-Medrol Continue with gentle hydration normal saline pulmonary and hematology oncology team consult Surgical team consult Labs and medication were reviewed.. Continue same treatment. Continue with symptomatic treatment. Resume home medication. Monitor labs and vitals. DVT and GI prophylaxis. Further recommendations as per clinical course of the patient DVT prophylaxis: Subcutaneous Lovenox GI Prophylaxis: Pepcid PT/OT: Patient declined Prognosis is guarded Patient is medically stable for discharge, but she wants to wait until tomorrow for family issues
[2022-10-01] MEDS: HYDROcodone/APAP 10-325MG 1 EACH TAB PO PRN ×3 (00:16→12:26)
[2022-10-01] MEDS: HYDROmorphone 0.5 MG/0.5 ML SYRINGE IVP PRN (04:19)
[2022-10-01 06:02] LABS: Glucose,Whole Blood 102 mg/dL (70-110)
[2022-10-01] MEDS: INSULIN ASPART (NovoLOG) 100 UNIT/ML VIAL SQ SCH (06:02)
[2022-10-01] MEDS: FAMOTIDINE 20 MG/2 ML VIAL IV SCH (08:03)
[2022-10-01] MEDS: ENOXAPARIN 40 MG/0.4 ML SYRINGE SQ SCH (08:03)
[2022-10-01] MEDS: LORazepam 0.5 MG TAB PO SCH (08:03)
[2022-10-01] MEDS: Osimertinib Mesylate [Tagrisso] 80 MG Tablet PO SCH (08:04)
[2022-10-01] MEDS: CHLORHEXIDINE GLUCONATE 15 ML CUP MUCOUS MEM SCH (08:07)
[2022-10-01 08:31] LABS: African American GFR (CKD) >90 (>60 ml/min/1.73 sqM); Anion Gap 4 mmol/L; Blood Urea Nitrogen 15 mg/dL (7-17); Calcium 8.5 mg/dL (8.4-10.2); Carbon Dioxide 34 mmol/L (22-30); Chloride 95 mmol/L (98-107); Glucose 72 mg/dL (74-99); Non-African American GFR(CKD) >90 (>60 ml/min/1.73 sqM); Sodium 133 mmol/L (137-145)
[2022-10-01 08:32] LABS: Basophils % (A) 0 %; Eosinophils # (A) 0.1 k/uL (0-0.7); Eosinophils % (A) 1 %; HGB 10.1 gm/dL (11.4-16.0); Hypochromasia Slight; Lymphocytes # (A) 0.6 k/uL (1.0-4.8); Lymphocytes % (A) 6 %; MCH 30.9 pg (25.0-35.0); MCHC 33.5 g/dL (31.0-37.0); MCV 92.1 fL (80.0-100.0); Mean Platelet Volume 10.3; Monocytes # (A) 0.6 k/uL (0-1.0); Monocytes % (A) 7 %; Neutrophils # (A) 7.7 k/uL (1.3-7.7); Neutrophils % (A) 84 %; RBC 3.26 m/uL (3.80-5.40); RDW 15.2 % (11.5-15.5); WBC 9.3 k/uL (3.8-10.6)
[2022-10-01 08:39] LABS: Platelet Count 90 k/uL (150-450)
[2022-10-01] MEDS: ACETYLCYSTEINE 800 MG/4 ML VIAL INHALATION SCH (09:09)
[2022-10-01] MEDS: SYMBICORT 80-4.5 MCG INHALER INHALATION SCH (09:09)
[2022-10-01] MEDS: IPRATROPIUM-ALBUTEROL 3 ML NEB INHALATION SCH ×2 (09:09→12:25)
[2022-10-01 11:48] LABS: Glucose,Whole Blood 85 mg/dL (70-110)
--- NOTE | 2022-10-01 13:13 | P.PN ---
Subjective Progress Note Date: 10/01/22 Principal diagnosis: Positive blood culture Patient is a 67-year-old female with a past medical history significant for metastatic lung cancer for the patient has received most of her treatment at [facility] currently on immunotherapy but she never received any chemotherapy for it, patient presenting to the ER on 09/23/2022 for evaluation of anterior chest pain sharp in nature, patient did have evidence of PE also have a positive blood culture prompting this infectious disease consultation On today's evaluation that is 10/01/2022, patient remains to be afebrile, patient denies having any worsening cough ,did have mild blood in the sputum this morningion, still complaining of some occasional chest pain no nausea no vomiting no abdominal pain no diarrhea Objective - Vital Signs Vital signs: Vital Signs Temp 97.8 F 09/30/22 19:55 Pulse 92 10/01/22 12:35 Resp 16 10/01/22 08:02 BP 155/80 10/01/22 08:02 Pulse Ox 99 10/01/22 08:02 FiO2 Intake & Output 09/30/22 10/01/22 10/01/22 18:59 06:59 18:59 Intake Total 120 Balance 120 Weight 45.8 kg Intake: Oral 120 Other: Voiding Method Toilet Toilet Toilet # Voids 1 1 1 - Exam GENERAL DESCRIPTION: An elderly female lying in bed in no distress RESPIRATORY SYSTEM: Unlabored breathing , course breath sounds with occasional w heeze HEART: S1 S2 regular rate and rhythm , ABDOMEN: Soft , no tenderness EXTREMITIES: No edema feet - Labs CBC & Chem 7: 10/01/22 07:49 10/01/22 07:45 Labs: Abnormal Lab Results - Last 24 Hours (Table) 09/30/22 10/01/22 10/01/22 Range/Units 16:59 07:45 07:49 RBC 3.26 L (3.80-5.40) m/uL Hgb 10.1 L (11.4-16.0) gm/dL Hct 30.0 L (34.0-46.0) % Plt Count 90 L (150-450) k/uL Lymphocytes # 0.6 L (1.0-4.8) k/uL Sodium 133 L (137-145) mmol/L Chloride 95 L (98-107) mmol/L Carbon Dioxide 34 H (22-30) mmol/L Glucose 72 L (74-99) mg/dL POC Glucose (mg/dL) 114 H (70-110) mg/dL Microbiology - Last 24 Hours (Table) 09/26/22 12:10 Blood Culture - Preliminary Blood No Growth after 96 hours Assessment and Plan (1) Positive blood culture Status: Acute Code(s): R78.81 - BACTEREMIA SNOMED Code(s): 039683981 Plan: 1patient was negative blood culture with staph epi likely representing skin contamination as the patient has no clinical disease to go along with it, no need for vancomycin, Patient seemed to be doing off antibiotic therapy and there is no need for antibiotics on discharge 2patient presented to hospital with chest pain has been diagnosed with bilateral PE currently being treated with Lovenox and pulmonary is following the patient CT did not show any evidence of pneumonia , no need for antibiotics on discharge Time with Patient: Less than 30
[2022-10-01 14:43] VITALS: BP 140/78; PULSE 104
--- NOTE | 2022-10-01 14:46 | P.DS ---
Providers Date of admission: 09/26/22 16:03 Attending physician: Romario Larson Consults: 09/26/22 16:03 Consult Physician Routine Consulting Provider: Antonino Regan Consult Reason/Comments: Bilateral pulmonary emboli, metastatic lung cancer Do you want consulting provider notified?: Yes Consult Physician Routine Consulting Provider: Khanh Mariscal Consult Reason/Comments: Metastatic lung cancer, pulmonary embolus Do you want consulting provider notified?: Yes 09/29/22 09:20 Consult Physician Routine Consulting Provider: Kerwin Clinton Consult Reason/Comments: + blood culture Do you want consulting provider notified?: Yes Primary care physician: Stated None Hospital Course: Diagnoses: metastatic lung cancer. Bone and brain, CT of the chest showing cavitary lesion in the anterior lingula measuring 5.1 cm heterogeneous density. She is on tagresso for her lung cancer at home which is held now Bilateral pulmonary embolism without right ventricular strain Intake COPD exacerbation Generalized weakness, patient declined subacute rehab but agreeable to home health care Hospital course: This is a pleasant [age] years old female with past medical history of metastatic lung Cancer to the bone and brain, she follows up with [facility]. Presents with respiratory symptoms found to be secondary to bilateral pulmonary embolism. She was on multiple regimens of blood thinners including warfarin, patient has been evaluated by hematology/oncology team and she was started on Lovenox 40 mg twice daily, patient tolerated that well, her co-pay $0, she self injected herself and she is comfortable doing it at home, prescription has been picked up by staff and symptoms of pharmacy. Risks and benefits are explained for the patient and she verbalized understanding and acceptance. Also pulmonary was following her closely. She has been having mild COPD exacerbation chest. Due to therapy and she was going to be discharged on tapering steroids. On the day of discharge she is fully awake and oriented. She denies any chest pain or dyspnea, no GI or urinary symptoms. No headache or weakness or numbness. Patient was cleared for discharge by all consultants, hematology/oncology, pulmonary team and infectious disease team. Today I talked to her brother Mr. Bonilla upon her request and discussed the recommendation for her to follow up with her PCP in one week and her oncologist in 1-2 weeks and he is agreeable that she will follow up with her oncologist on 10/20 and he will be with his sister regarding this as he states. Vitals are stable. Labs checked today looks his stable as well. Hemoglobin stable. Creatinine normal. Glucose controlled Problems and management plan were discussed with the patient and he verbalized understanding and acceptance Patient was found stable and can be discharged home in guarded prognosis however he needs follow-up as an outpatient. Patient was instructed to follow up with PCP within one week and patient agrees Patient was instructed to follow up with Dr. Castro in one week. Patient was instructed to follow up with her oncologist as above Dr. Muro in 1-2 weeks and she agrees Physical exam Gen: patient is a AAOx3, no distress CVS: S1-S2, RRR, no murmur Lungs: B/L CTA, no wheezing Abdomen: soft, no distention, no tenderness, positive bowel sounds Extremity: no leg edema or induration Time spent more than 35 minutes Patient Condition at Discharge: Fair Plan - Discharge Summary Discharge Rx Participant: No New Discharge Prescriptions: New Enoxaparin [Lovenox] 40 mg SQ Q12H #60 each Famotidine [Pepcid] 20 mg PO BID #60 tablet RX: predniSONE 10 mg PO DIRECTED #30 tab Continue RX: Osimertinib Mesylate [Tagrisso] 80 mg PO DAILY RX: Ondansetron [Zofran] 4 mg PO TID PRN PRN Reason: Nausea RX: LORazepam [Ativan] 0.5 mg PO BID RX: Fluticasone/Umeclidin/Vilanter [Trelegy Ellipta 100-62.5-25] 1 puff INHALATION RT-DAILY@1300 RX: HYDROcodone/APAP 10-325MG [Tigrett 10-325] 1 tab PO QID PRN PRN Reason: Pain RX: Chlorhexidine Gluconate [Peridex] 15 ml PO BID RX: Ipratropium-Albuterol Nebulize [Duoneb 0.5 mg-3 mg/3 ml Soln] 3 ml INHALATION RT-QID PRN PRN Reason: Shortness Of Breath RX: Acetylcysteine [Mucomyst 20%] 800 mg INHALATION RT-DAILY #1 each RX: Albuterol Sulfate [Ventolin HFA] 2 puff INHALATION RT-QID PRN #1 each PRN Reason: Shortness Of Breath Changed RX: Docusate Sodium [Dok] 100 mg PO BID PRN #0 PRN Reason: Constipation RX: Ipratropium-Albuterol Nebulize [Duoneb 0.5 mg-3 mg/3 ml Soln] 3 ml INHALATION RT-QID #10 mgofpheneq Discontinued RX: Azithromycin [Zithromax] 500 mg PO DAILY 4 Days #4 tab RX: Warfarin Sodium 2.5 mg PO DIRECTED@2100 Amoxic-Pot Clav 875-125Mg [Augmentin 875-125] 1 tab PO Q12H RX: predniSONE See Taper PO DIRECTED Discharge Medication List RX: Chlorhexidine Gluconate [Peridex] 15 ml PO BID 09/22/22 [History] RX: Fluticasone/Umeclidin/Vilanter [Trelegy Ellipta 100-62.5-25] 1 puff INHALATION RT-DAILY@1300 09/22/22 [History] RX: HYDROcodone/APAP 10-325MG [Tigrett 10-325] 1 tab PO QID PRN 09/22/22 [History] RX: LORazepam [Ativan] 0.5 mg PO BID 09/22/22 [History] RX: Ondansetron [Zofran] 4 mg PO TID PRN 09/22/22 [History] RX: Osimertinib Mesylate [Tagrisso] 80 mg PO DAILY 09/22/22 [History] RX: Ipratropium-Albuterol Nebulize [Duoneb 0.5 mg-3 mg/3 ml Soln] 3 ml INHALATION RT-QID PRN 09/26/22 [History] Enoxaparin [Lovenox] 40 mg SQ Q12H #60 each 09/28/22 [Rx] Famotidine [Pepcid] 20 mg PO BID #60 tablet 09/30/22 [Rx] RX: Acetylcysteine [Mucomyst 20%] 800 mg INHALATION RT-DAILY #1 each 09/30/22 [Rx] RX: Albuterol Sulfate [Ventolin HFA] 2 puff INHALATION RT-QID PRN #1 each 09/30/22 [Rx] RX: Docusate Sodium [Dok] 100 mg PO BID PRN #0 09/30/22 [Rx] RX: Ipratropium-Albuterol Nebulize [Duoneb 0.5 mg-3 mg/3 ml Soln] 3 ml INHALATION RT-QID #10 mgofpheneq 09/30/22 [Rx] RX: predniSONE 10 mg PO DIRECTED #30 tab 09/30/22 [Rx] Follow up Appointment(s)/Referral(s): [facility] [NON-STAFF] - (Call when leaving the hospital so they can meet you at home with the concentrator and education. ) Daron Castro DO [Doctor of Osteopathic Medicine] - 1 Week (Please call to schedule follow up appoitment Monday ) None,Stated [Primary Care Provider] - 1-2 days [facility] [NON-STAFF] - Patient Instructions/Handouts: Pulmonary Embolism (IP) Activity/Diet/Wound Care/Special Instructions: Low carbohydrate diet while on steroids Activity is restricted until you see your doctor We recommend to follow up with her oncologist Dr. Lowry in 1-2 week period informed the medical team up appointment with him on 10/20/22. You have the contact information as informed the medical team Discharge Disposition: HOME WITH HOME HEALTH SERVICES
== END 2022-10-01 13:06 | disposition home health service (06) | DRG 176 ==
LOC: EC 11:33 → 3SCARD 16:03
PROVIDERS: ADMIT Hospitalist; ATTEND Hospitalist
DX: I26.99 Other pulmonary embolism without acute cor pulmonale (principal); C34.90 Malignant neoplasm of unspecified part of unspecified bronchus or lung; C79.51 Secondary malignant neoplasm of bone; C79.31 Secondary malignant neoplasm of brain; E44.0 Moderate protein-calorie malnutrition; Z68.1 Body mass index [BMI] 19.9 or less, adult; E87.1 Hypo-osmolality and hyponatremia; J44.1 Chronic obstructive pulmonary disease with (acute) exacerbation; R79.1 Abnormal coagulation profile; E86.0 Dehydration; F17.210 Nicotine dependence, cigarettes, uncomplicated; F32.A Depression, unspecified; F41.9 Anxiety disorder, unspecified; I10 Essential (primary) hypertension; I25.10 Atherosclerotic heart disease of native coronary artery without angina pectoris; R09.02 Hypoxemia; Z66 Do not resuscitate; Z80.1 Family history of malignant neoplasm of trachea, bronchus and lung; Z79.899 Other long term (current) drug therapy; Z82.5 Family history of asthma and other chronic lower respiratory diseases; Z86.718 Personal history of other venous thrombosis and embolism; Z87.01 Personal history of pneumonia (recurrent)
CPT/HCPCS: 36415; 71046; 71275; 80048; 80053; 82803; 83036; 83605; 83735; 83880; 84484; 85025; 85379; 85610; 85730; 87040; 93005; 94640; 94760; 96361; 96365; 96366; 96375; 99291